=== PATIENT | female | born 1960 | race African-American/Black ===

== ENCOUNTER 2016-09-19 05:26 | Observation (INO) | payer OTHER ==
[~2016-09-19] VITALS: Ht 162.6 cm; Wt 100.0 kg
[2016-09-19] VITALS (8 sets, daily range): BP systolic 95–121; BP diastolic 66–84; PULSE 66–74; RESP 14–18; TEMP 95.6–98; O2SAT 92–98
[~2016-09-19 05:26] MED LIST: FURO20 PO; MAXZ25 PO; METO50TA PO; MULT1PAK; POTA1TAB4 PO; RIVA20 PO; ROSU40 PO
[2016-09-19] MEDS ORDERED: MAXZ PO (06:21)
[2016-09-19] MEDS ORDERED: ROSU40 PO (06:21)
[2016-09-19] MEDS ORDERED: K-TA10TA PO (06:21)
[2016-09-19] MEDS ORDERED: FURO20TA PO (06:21)
[2016-09-19] MEDS ORDERED: XARE20TA PO (06:21)
[2016-09-19] MEDS ORDERED: METO25TA3 PO (06:21)
[2016-09-19] MEDS ORDERED: PRED10 PO (06:24)
[2016-09-19] MEDS ORDERED: METH2.5T PO (06:24)
[2016-09-19] MEDS ORDERED: SODIUM CHLORIDE 0.9% FLUSH 10 ML FLUSH IV FLUSH PRN (07:00)
[2016-09-19 07:24] LABS: AUTOMATED NEUTROPHIL # 6.8 TH/MM3 (1.8-7.7); BASOPHIL # 0.2 TH/MM3 (0-0.2); BASOPHIL % 2.5 % (0.0-2.0); EOSINOPHIL # 0.1 TH/MM3 (0-0.4); EOSINOPHIL % 0.8 % (0.0-4.0); HEMATOCRIT 46.2 % (35.0-46.0); HEMO FLAGS DIFF FINAL; LYMPH % 18.7 % (9.0-44.0); LYMPHOCYTE # 1.8 TH/MM3 (1.0-4.8); MEAN CELL VOLUME 92.9 FL (80.0-100.0); MEAN CORPUSCULAR HEMOGLOBIN 29.1 PG (27.0-34.0); MEAN CORPUSCULAR HGB CONC 31.3 % (32.0-36.0); MONO % 6.7 % (0.0-8.0); NEUT % 71.3 % (16.0-70.0); PLATELET COUNT 299 TH/MM3 (150-450); RED BLOOD COUNT 4.97 MIL/MM3 (4.00-5.30); RED CELL DISTRIBUTION WIDTH 14.7 % (11.6-17.2); WHITE BLOOD COUNT 9.4 TH/MM3 (4.0-11.0)
[2016-09-19] MEDS ORDERED: MORPHINE SULFATE 4 MG/ML INJ IV PUSH ONE (07:45)
[2016-09-19] MEDS ORDERED: SODIUM CHLOR 0.9% 1000 ML INJ 1,000 ML IV SCH (07:45)
[2016-09-19] MEDS ORDERED: ONDANSETRON HCL 4 MG/2 ML VIAL IV ONE (07:45)
[2016-09-19 07:58] LABS: CHLORIDE 99 MEQ/L (98-107); POTASSIUM 3.2 MEQ/L (3.5-5.1); SODIUM (NA) 138 MEQ/L (136-145)
[2016-09-19 08:03] LABS: ANION GAP 11 MEQ/L (5-15); BICARBONATE 28.5 MEQ/L (21.0-32.0); BLOOD UREA NITROGEN 13 MG/DL (7-18)
[2016-09-19 08:06] LABS: ALT (GPT) 423 U/L (10-53); AST (GOT) 585 U/L (15-37); GLOMERULAR FILTRATION RATE 86 ML/MIN (>89)
[2016-09-19 08:08] LABS: TOTAL BILIRUBIN ADULT 1.8 MG/DL (0.2-1.0)
[2016-09-19 08:09] LABS: ALKALINE PHOSPHATASE 220 U/L (45-117)
--- NOTE | 2016-09-19 08:12 | RADHPO ---
EXAM DATE/TIME: 09/19/2016 07:43 [place] COMPARISON: No previous studies available for comparison. INDICATIONS : Gallstones. MEDICAL HISTORY : Myocardial infarction. Congestive heart failure. Left lazy eye. Optic neuritis. Syncope. Cardiomyop athy. Afib. Hyperlipidemia. Chest pain. HTN. Asthma. Anemia. Anticoagulant therapy, Xarelto. SURGICAL HISTORY : Hysterectomy. AICD implanted. Cardiac ablation x2. Cardiac cath. Cardioverted x3. Afib ablation. Left hand cyst removal. ENCOUNTER: Initial ACUITY: 2 days PAIN SCORE: 10/10 LOCATION: Right upper quadrant MEASUREMENTS: LIVER: 15.6 cm length COMMON DUCT: 6 mm RIGHT KIDNEY: 10.7 x 4.3 x 4.6 cm FINDINGS: LIVER: Severe increased echotexture without focal lesion or ductal dilatation. COMMON DUCT: No intraluminal mass or stone visualized. GALLBLADDER: Multiple echogenic foci are visualized in the gallbladder neck and demonstrate a mild degree of shado wing. These are not mobile with decubitus positioning. Mild gallbladder wall thickening is present. S onographer reports a positive sonographic Freitas sign. PANCREAS: The visualized portions are within normal limits. RIGHT KIDNEY: No evidence of hydronephrosis, stone, or mass. CONCLUSION: 1. There are stones in the gallbladder neck that are not mobile with decubitus positioning. Kristie barker, wedding makeup artist reports a positive sonographic Freitas's. Findings are suspicious for acute cholecyst itis. 2. Severe hepatic steatosis. Jabier Najera MD on September 19, 2016 at 8:08 Board Certified Radiologist. This report was verified electronically.
[2016-09-19] MEDS ORDERED: PIPERACIL-TAZO 3.375 GM PREMIX 50 ML IV ONE (09:00)
--- NOTE | 2016-09-19 11:05 | PD ---
HPI Chief Complaint: Abdominal Pain Time Seen by Provider: 06:46 Travel History International Travel<30 days: No Contact w/Intl Traveler<30days: No Traveled to known affect area: No History of Present Illness HPI The 55 year-old woman, history of sarcoidosis, on prednisone and methotrexate, as well as history of A. fib, on Xarelto, and previous V. tach with an AICD placed related to hypertrophic cardiomyopathy or cardiac sarcoid, presents to the emergency department with abdominal pain. She states during workup for sarcoid felt she had gallstones. She's never had abdominal pain before. She did get abdominal pain are in her to see a doctor before. She never trouble her gallbladder. She has only had abdominal surgery for hysterectomy. She has been feeling well until last night after dinner she started getting severe right upper quadrant epigastric abdominal pain that radiated through to her back. Symptoms were persistent through the night, associated with some nausea. Was worse this morning she began vomiting so she came to the emergency department. History Past Medical History Narrative Medical Sarcoidosis Reported hypertrophic cardiomyopathy, as well as cardiac sarcoid, she's had V. tach in the past, now has an AICD Reported A. fib, on Xarelto Tetanus Vaccination: Unknown Influenza Vaccination: No Menopausal: Yes : 3 Para: 3 Social History Alcohol Use: No Tobacco Use: No Allergies-Medications (Allergen,Severity, Reaction): Coded Allergies: Dairy (Verified Allergy, Severe, Rash, 09/19/16) Oxycodone (Unverified Allergy, Severe, Nausea/Vomiting, 09/19/16) Shellfish (Verified Allergy, Severe, Rash, 09/19/16) Egg Allergy (Verified Allergy, Intermediate, Rash, 09/19/16) Reported Meds & Prescriptions Reported Meds & Active Scripts Active Reported Prednisone 10 Mg Tab 9 Mg PO DAILY Methotrexate 2.5 Mg Tab 2.5 Mg PO FRIDAY Metoprolol Tartrate 25 Mg Tab 25 Mg PO BID Furosemide 20 Mg Tab 20 Mg PO DAILY K-Tab (Potassium Chloride) 10 Meq Tab 10 Meq PO DAILY Crestor (Rosuvastatin Calcium) 40 Mg Tab 40 Mg PO DAILY Xarelto (Rivaroxaban) 20 Mg Tab 20 Mg PO DAILY Maxzide (Triamterene/HCTZ) 75-50 Mg Tab 1 Tab PO DAILY Review of Systems Except as stated in HPI: all other systems reviewed are Neg Physical Exam Narrative GENERAL: Well-appearing 55 year-old woman, no acute distress. SKIN: Focused skin assessment warm/dry. NECK: Trachea midline. No JVD. CARDIOVASCULAR: Regular rate and rhythm. No murmur appreciated. RESPIRATORY: No accessory muscle use. Clear to auscultation. Breath sounds equal bilaterally. GASTROINTESTINAL: Abdomen flat and soft. She has moderate right upper quadrant tenderness to palpation. Positive Freitas sign. No rebound or guarding. MUSCULOSKELETAL: No obvious deformities. No edema. Data Data Last Documented VS Vital Signs Date Time Temp Pulse Resp B/P Pulse Ox O2 Delivery O2 Flow Rate FiO2 09/19/16 08:26 69 18 97/66 98 Room Air 09/19/16 05:33 98.0 Orders Complete Blood Count With Diff (09/19/16 07:00) Comprehensive Metabolic Panel (09/19/16 07:00) Lipase (09/19/16 07:00) Urinalysis - C+S If Indicated (09/19/16 07:00) Iv Access Insert/Monitor (09/19/16 07:00) Ecg Monitoring (09/19/16 07:00) Oximetry (09/19/16 07:00) Sodium Chloride 0.9% Flush (Ns Flush) (09/19/16 07:00) Ed Poc Ultrasound (09/19/16 07:00) Us Abdomen Gallbladder (09/19/16 ) Morphine Inj (Morphine Inj) (09/19/16 07:45) Ondansetron Inj (Zofran Inj) (09/19/16 07:45) Sodium Chlor 0.9% 1000 Ml Inj (Ns 1000 M (09/19/16 07:45) Piperacil-Tazo 3.375 Gm Premix (Zosyn 3. (09/19/16 09:00) Admit Order (Ed Use Only) (09/19/16 ) Labs Laboratory Tests Test 09/19/16 09/19/16 07:12 07:40 White Blood Count 9.4 TH/MM3 Red Blood Count 4.97 MIL/MM3 Hemoglobin 14.5 GM/DL Hematocrit 46.2 % Mean Corpuscular Volume 92.9 FL Mean Corpuscular Hemoglobin 29.1 PG Mean Corpuscular Hemoglobin 31.3 % Concent Red Cell Distribution Width 14.7 % Platelet Count 299 TH/MM3 Mean Platelet Volume 9.3 FL Neutrophils (%) (Auto) 71.3 % Lymphocytes (%) (Auto) 18.7 % Monocytes (%) (Auto) 6.7 % Eosinophils (%) (Auto) 0.8 % Basophils (%) (Auto) 2.5 % Neutrophils # (Auto) 6.8 TH/MM3 Lymphocytes # (Auto) 1.8 TH/MM3 Monocytes # (Auto) 0.6 TH/MM3 Eosinophils # (Auto) 0.1 TH/MM3 Basophils # (Auto) 0.2 TH/MM3 CBC Comment DIFF FINAL Differential Comment Sodium Level 138 MEQ/L Potassium Level 3.2 MEQ/L Chloride Level 99 MEQ/L Carbon Dioxide Level 28.5 MEQ/L Anion Gap 11 MEQ/L Blood Urea Nitrogen 13 MG/DL Creatinine 0.84 MG/DL Estimat Glomerular Filtration 86 ML/MIN Rate Random Glucose 132 MG/DL Calcium Level 9.2 MG/DL Total Bilirubin 1.8 MG/DL Aspartate Amino Transf 585 U/L (AST/SGOT) Alanine Aminotransferase 423 U/L (ALT/SGPT) Alkaline Phosphatase 220 U/L Total Protein 8.1 GM/DL Albumin 4.0 GM/DL Lipase 340 U/L [facility] Medical Decision Making Medical Screen Exam Complete: Yes Emergency Medical Condition: Yes Interpretation(s) LABS: CBC is unremarkable. CMP remarkable for elevated total bili, elevated AST ALT and alkaline phosphatase Lipase normal Differential Diagnosis Acute cholecystitis, pancreatitis, choledocholithiasis, other Narrative Course Medical decision making 54 year-old woman presents of right upper quadrant abdominal pain, right upper quadrant tenderness, specifically cholecystitis. Bedside ultrasound shows gallstone that appears impacted in the gallbladder neck. I don't see any definite gallbladder wall thickening or pericholecystic fluid. She's focally tender over the gallbladder. Labs show elevation in her liver enzymes. I spoke with Dr. myers, he will admit the patient. We'll consult with Dr. viadl. She'll need to be off for Xarelto. We'll give her a dose of Zosyn. Diagnosis Primary Impression: Acute cholecystitis Admitting Information Admitting Physician Requests: Admit David Moses MD Sep 19, 2016 11:05
[2016-09-19] MEDS ORDERED: HYDROmorphone HCL PF 2 MG/ML VIAL IV PUSH PRN (13:30)
[2016-09-19] MEDS ORDERED: D5-1/2 NS + KCL 20 MEQ INJ 1,000 ML IV SCH (13:30)
[2016-09-19] MEDS: DEXAMETHASONE SOD PHOS 4 MG/ML VIAL IV PUSH SCH (17:59)
[2016-09-19] MEDS: PIPERACIL-TAZO 3.375 GM PREMIX 50 ML IV SCH ×2 (17:59→22:54)
[2016-09-19] MEDS: ONDANSETRON HCL 4 MG/2 ML VIAL IV PUSH PRN (18:00)
[2016-09-19] MEDS: HYDROmorphone HCL PF 1 MG/ML VIAL IV PUSH PRN (18:00)
[2016-09-19] MEDS ORDERED: POTASSIUM CHLORIDE 20 MEQ CONTROLLED RELEASE TAB PO ONE (18:15)
--- NOTE | 2016-09-19 19:35 | PD.CONS ---
History of Present Illness Service Medicine Consult Requested By Dr. Good Reason for Consult Assist in medical management Primary Care Physician Brian Marinelli MD Diagnoses: (1) Acute cholecystitis (2) Hypertrophic cardiomyopathy (3) Hyperlipidemia (4) Sarcoidosis (5) KOREY (obstructive sleep apnea) History of Present Illness 55 year old female presents to Ed with one night of intense abdominal pain not relieved with multiple OTC medications. She states she has had indigestion and abdominal bloating for the last year that she has attributed to one of her medications. This discomfort has been happening more frequently over the last several weeks. Friday she went out for dinner and had some abdominal pain that evening that improved. Last night after dinner she developed abdominal pain that continued to get worse during the course of the evening, she tried teas, tums, gas-x pepto bismol.She finally came to the ED where she was found to have gallstones. Dr Good will be taking her to surgery tommorrow am. Per the ER physician Dr Good has spoken to her high pressure operator and he has stopped her xaralto for 24 hours. Review of Systems Constitutional: DENIES: Fever, Chills, Change in appetite Endocrine: DENIES: Heat/cold intolerance Eyes: DENIES: Blurred vision, Eye pain Cardiovascular: DENIES: Chest pain, Palpitations, Syncope, Dyspnea on Exertion , PND, Lower Extremity Edema, Orthopnea, Claudication Gastrointestinal: COMPLAINS OF: Black stools, Bloody stools, Constipation, Diarrhea, Nausea, Vomiting, Difficulty Swallowing Except as stated in HPI: all other systems reviewed are Neg Past Family Social History Allergies: Coded Allergies: Dairy (Verified Allergy, Severe, Rash, 09/19/16) Oxycodone (Unverified Allergy, Severe, Nausea/Vomiting, 09/19/16) Shellfish (Verified Allergy, Severe, Rash, 09/19/16) Egg Allergy (Verified Allergy, Intermediate, Rash, 09/19/16) Past Medical History Hypertrophic cardiomyopathy [place] Atrial fibrillation s/p ablation PSVT Sarcoidosis Optic Neuritis KOREY Hyperlipidemia Past Surgical History Implantable cardioverter-defibrillator CISCO rt paroidectomy Reported Medications kcl 10 meq dailycrestor 20 mg daily folic acid 1 mg daily furosemide 40 qod losartan 25 mg daily methotrexate 2.5 mg 6tabs on friday metoprolol 25 mg bid prednisone 9 mg daily triam/hctz 37.5/25 qod xaralto 20 mg daily Family History non contributory Social History , 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 Physical Exam Vital Signs Vital Signs Date Time Temp Pulse Resp B/P Pulse Ox O2 Delivery O2 Flow Rate FiO2 09/19/16 16:00 96.3 70 18 118/79 98 09/19/16 14:45 95.6 67 17 95/69 96 09/19/16 12:30 66 14 114/67 96 Room Air 09/19/16 11:13 70 18 108/69 97 Room Air 09/19/16 08:26 69 18 97/66 98 Room Air 09/19/16 07:22 97 Room Air 09/19/16 05:33 98.0 72 18 121/84 98 Physical Exam GENERAL: This is a well-nourished, well-developed patient, in no apparent distress. SKIN: No rashes, ecchymoses or lesions. Cool and dry. HEAD: Atraumatic. Normocephalic. No temporal or scalp tenderness. EYES: Pupils equal round and reactive. Extraocular motions intact. No scleral icterus. No injection or drainage. ENT: Throat without erythema, moist oral mucosa. NECK: Trachea midline. No JVD or lymphadenopathy. Supple, nontender, no meningeal signs. CARDIOVASCULAR: Regular rate and rhythm without murmurs, gallops, or rubs. RESPIRATORY: Clear to auscultation. Breath sounds equal bilaterally. No wheezes , rales, or rhonchi. GASTROINTESTINAL: Abdomen soft. diminished bowel sounds. midepigastric ruq tenderness to palpation, nondistended. MUSCULOSKELETAL: Extremities without clubbing, cyanosis, or edema. No calf tenderness. Negative Homans sign bilaterally. NEUROLOGICAL: Awake and alert. Cranial nerves II through XII intact. Motor and sensory grossly within normal limits. Five out of 5 muscle strength in all muscle groups. Normal speech. Laboratory Laboratory Tests Test 09/19/16 09/19/16 07:12 07:40 White Blood Count 9.4 Red Blood Count 4.97 Hemoglobin 14.5 Hematocrit 46.2 Mean Corpuscular Volume 92.9 Mean Corpuscular Hemoglobin 29.1 Mean Corpuscular Hemoglobin 31.3 Concent Red Cell Distribution Width 14.7 Platelet Count 299 Mean Platelet Volume 9.3 Neutrophils (%) (Auto) 71.3 Lymphocytes (%) (Auto) 18.7 Monocytes (%) (Auto) 6.7 Eosinophils (%) (Auto) 0.8 Basophils (%) (Auto) 2.5 Neutrophils # (Auto) 6.8 Lymphocytes # (Auto) 1.8 Monocytes # (Auto) 0.6 Eosinophils # (Auto) 0.1 Basophils # (Auto) 0.2 CBC Comment DIFF FINAL Differential Comment Sodium Level 138 Potassium Level 3.2 Chloride Level 99 Carbon Dioxide Level 28.5 Anion Gap 11 Blood Urea Nitrogen 13 Creatinine 0.84 Estimat Glomerular Filtration 86 Rate Random Glucose 132 Calcium Level 9.2 Total Bilirubin 1.8 Aspartate Amino Transf 585 (AST/SGOT) Alanine Aminotransferase 423 (ALT/SGPT) Alkaline Phosphatase 220 Total Protein 8.1 Albumin 4.0 Lipase 340 Result Diagram: 09/19/16 0712 09/19/16 0740 Imaging Last Impressions Gall Bladder Ultrasound 09/19/16 0000 Signed Impressions: Service Date/Time: , September 19, 2016 07:43 - CONCLUSION: 1. There are stones in the gallbladder neck that are not mobile with decubitus positioning. Additionally, pelt dropper reports a positive sonographic Freitas's. Findings are suspicious for acute cholecystitis. 2. Severe hepatic steatosis. Jabier Najera MD Course Patient has been admitted for acute cholecystitis. Xaralto has been stopped , She has been placed on antibiotcs and stress dose steroids, On dilaudid for pain control. Assessment and Plan Problem List: (1) Acute cholecystitis Status: Acute Plan: on antibiotics and pain medications until anticipated surgery tomnorrow (2) Sarcoidosis Status: Chronic Plan: on methrotrexate and prednisone since last fall, on stress dose steroids ss insulin prn (3) Hypertrophic cardiomyopathy Status: Chronic Plan: on xaralto , per ER Physician Dr Good has already discussed Stopping the Xaralto with Li Chamorro MD Sep 19, 2016 19:35
[2016-09-19] MEDS ORDERED: DEXTROSE 50% IN WATER 50 ML VIAL(D50) IV PRN (19:45)
[2016-09-19] MEDS ORDERED: GLUCAGON 1 MG/ML VIAL OTHER PRN (19:45)
[2016-09-19] MEDS ORDERED: INSULIN ASPART SUPPLEMENTAL SCALE SQ SCH (21:00)
[2016-09-20 00:11] VITALS: BP 110/81; PULSE 72; RESP 14; TEMP 96.1; O2SAT 96
[2016-09-20] MEDS: DEXAMETHASONE SOD PHOS 4 MG/ML VIAL IV PUSH SCH ×3 (00:57→15:53)
[2016-09-20] MEDS: PIPERACIL-TAZO 3.375 GM PREMIX 50 ML IV SCH ×2 (03:19→09:08)
[2016-09-20 04:11] VITALS: BP 106/84; PULSE 71; RESP 14; TEMP 96.3; O2SAT 97
[2016-09-20 06:23] LABS: AUTOMATED NEUTROPHIL # 9.9 TH/MM3 (1.8-7.7); BASOPHIL % 0.3 % (0.0-2.0); EOSINOPHIL % 0.1 % (0.0-4.0); HEMATOCRIT 41.6 % (35.0-46.0); HEMO FLAGS DIFF FINAL; LYMPH % 8.7 % (9.0-44.0); LYMPHOCYTE # 0.9 TH/MM3 (1.0-4.8); MEAN CELL VOLUME 93.5 FL (80.0-100.0); MEAN CORPUSCULAR HEMOGLOBIN 30.6 PG (27.0-34.0); MEAN CORPUSCULAR HGB CONC 32.7 % (32.0-36.0); MONO % 0.6 % (0.0-8.0); NEUT % 90.3 % (16.0-70.0); PLATELET COUNT 315 TH/MM3 (150-450); RED BLOOD COUNT 4.45 MIL/MM3 (4.00-5.30); RED CELL DISTRIBUTION WIDTH 13.9 % (11.6-17.2); WHITE BLOOD COUNT 10.9 TH/MM3 (4.0-11.0)
[2016-09-20 06:25] LABS: POTASSIUM 3.4 MEQ/L (3.5-5.1)
[2016-09-20 06:30] LABS: BICARBONATE 30.1 MEQ/L (21.0-32.0)
[2016-09-20 06:35] LABS: INDIRECT BILIRUBIN 0.8 MG/DL (0.0-0.8); TOTAL BILIRUBIN ADULT 1.1 MG/DL (0.2-1.0)
[2016-09-20] MEDS: ONDANSETRON HCL 4 MG/2 ML VIAL IV PUSH PRN ×2 (07:38→14:19)
[2016-09-20 08:00] VITALS: BP 118/85; PULSE 73; RESP 18; TEMP 97.6; O2SAT 98
[2016-09-20 09:17] VITALS: BP 118/85; PULSE 73; RESP 18; TEMP 97.6; O2SAT 98
--- NOTE | 2016-09-20 09:32 | MH ---
cc: IDA RIOS DATE OF ADMISSION: 09/19/2016 ADMITTING DIAGNOSIS Acute cholecystitis. BRIEF HISTORY The patient is a 55-year-old lady who presented to the emergency department in [place] with a less than 24-hour history of significant upper abdominal pain. The pain began several hours after eating a meal in the evening. She had persistent and increasing abdominal pain throughout the night with multiple episodes of nausea and emesis as well. She came to the emergency department where she was evaluated and found to have elevated liver function tests and an ultrasound consistent with acute cholecystitis. She was admitted for surgical intervention which was delayed due to the patient having taken Xarelto the day before. PAST MEDICAL HISTORY 1. Hypertrophic cardiomyopathy. 2. Previous myocardial infarction. 3. Atrial fibrillation status post ablation. 4. Sarcoidosis. 5. Optic neuritis. 6. Hyperlipidemia. 7. Previous placement of an AICD. 8. Total abdominal hysterectomy. 9. Right parotidectomy. MEDICATIONS Current medications include: 1. Furosemide 40 mg every other day. 2. Losartan 25 mg a day. 3. Methotrexate 2.5 mg, six tablets on Friday. 4. Metoprolol 25 mg b.i.d. 5. Prednisone 9 mg daily. 6. Triamterene/hydrochlorothiazide 37.5/25 every other day. 7. Xarelto 20 mg daily; last dose 18 Sep 2016. FAMILY HISTORY, SOCIAL HISTORY AND REVIEW OF SYSTEMS Noncontributory. PHYSICAL EXAMINATION VITAL SIGNS: Blood pressure 121/84, heart rate 72. GENERAL: The patient is an overall healthy-appearing lady in minimal distress. HEENT: Unremarkable. No lesions, inflammation or scleral icterus. NECK: Supple. No lymphadenopathy or thyromegaly. CHEST: Clear to percussion and auscultation. HEART: No murmurs or gallops. ABDOMEN: The abdomen is minimally tender in the right upper quadrant with no guarding or rebound. EXTREMITIES: Grossly intact. NEUROLOGIC: Grossly intact. LABORATORY White blood count is normal. Liver functions were significantly elevated at the time of admission with AST 585, ALT 423, bilirubin 1.8, alkaline phosphatase 220. IMAGING Ultrasound showed thickened gallbladder wall with possible pericholecystic fluid consistent with possible acute cholecystitis. IMPRESSION Acute cholecystitis. PLAN Laparoscopic cholecystectomy the day after admission. The patient will be placed on intravenous antibiotics and a clear liquid diet until surgery. I have explained the procedure to her including the risks of bleeding, infection, anesthesia, the possibility of visceral injury, common bile duct injury, open procedure and the possible necessity for postoperative ERCP. She understands and is agreeable to the procedure. MD AB Bennett/MICKEY /8:49 AM /9:25 AM
[2016-09-20] MEDS ORDERED: MIDAZOLAM HCL 2 MG/2 ML VIAL ONE (09:43)
[2016-09-20] MEDS ORDERED: FAMOTIDINE 20 MG/2 ML VIAL ONE (09:43)
[2016-09-20] MEDS ORDERED: fentaNYL CITRATE 250 MCG/5 ML AMP ONE (09:54)
[2016-09-20] MEDS ORDERED: VASOPRESSIN INJ 20 UNITS/ML VIAL ONE (09:55)
[2016-09-20] MEDS ORDERED: LIDOCAINE 1%/EPINEPHrine 1:100,000 SOLN 30 ML VIAL ONE (10:03)
[2016-09-20] MEDS ORDERED: BUPIVACAINE HCL PF 0.5% 30 ML VIAL ONE (10:03)
[2016-09-20 11:45] VITALS: PULSE 92
[2016-09-20] MEDS ORDERED: PROPOFOL 200 MG/20 ML AMP IV ONE (12:43)
[2016-09-20] MEDS ORDERED: ONDANSETRON HCL 4 MG/2 ML VIAL IV PUSH ONE (12:43)
[2016-09-20] MEDS: HYDROmorphone HCL PF 1 MG/ML VIAL IV PUSH PRN (14:24)
[2016-09-20] MEDS ORDERED: oxyCODONE/ACETAMINOPHEN 5 MG/325 MG TAB PO PRN ×2 (15:00)
[2016-09-20 15:56] VITALS: BP 103/71; PULSE 74; RESP 16; TEMP 96.2; O2SAT 93
--- NOTE | 2016-09-20 17:24 | HHI.PR ---
Subjective Remarks groggy after surgery, eating jello Objective Vitals Vital Signs Date Time Temp Pulse Resp B/P Pulse Ox O2 Delivery O2 Flow Rate FiO2 09/20/16 15:56 96.2 74 16 103/71 93 09/20/16 12:45 79 14 125/75 97 Room Air 09/20/16 12:28 79 14 125/76 98 Nasal Cannula 2 09/20/16 12:00 79 12 144/87 96 Nasal Cannula 2 09/20/16 11:45 97.6 92 12 157/89 95 Nasal Cannula 2 09/20/16 11:45 92 09/20/16 09:17 97.6 73 18 118/85 98 09/20/16 08:00 97.6 73 18 118/85 98 09/20/16 04:11 96.3 71 14 106/84 97 09/20/16 01:00 97.6 83 14 134/76 99 Room Air 09/20/16 00:11 96.1 72 14 110/81 96 09/19/16 20:11 96.5 74 16 101/78 92 09/19/16 09/19/16 09/20/16 15:00 23:00 07:00 Intake Total 1240 ml Balance 1240 ml Intake Oral 240 ml IV Total 1000 ml # Voids 2 3 # Bowel Movements 0 Result Diagram: 09/20/16 0520 09/20/16 0520 Imaging Last Impressions Gall Bladder Ultrasound 09/19/16 0000 Signed Impressions: Service Date/Time: September 07:43 - CONCLUSION: 1. There are stones in the gallbladder neck that are not mobile with decubitus positioning. Additionally, hvac manager reports a positive sonographic Freitas's. Findings are suspicious for acute cholecystitis. 2. Severe hepatic steatosis. Jabier Najera MD Objective Remarks alert nad cta rrr decreased bsm steri strips over incisions no edema A/P Problem List: (1) Acute cholecystitis Status: Resolved Plan: s/p cholecystectomy today by dr myers (2) Hypertrophic cardiomyopathy Status: Chronic Plan: has AICD , afib s/p ablation on xaralto held for surgery nurse spoke to surgeon diabetes solutions specialist ok to restart on friday I spoke to Dr Le who stated the same will discharge with instruction to start then Li Fisher MD Sep 20, 2016 17:24
[2016-09-20] MEDS ORDERED: HYDR-3533 PO (18:54)
[2016-09-20] MEDS ORDERED: XARE20TA PO ×2 (19:04→19:07)
--- NOTE | 2016-10-23 13:41 | MP ---
cc: BLANCAFORRESTY DATE OF SURGERY 09/20/2016 PREOPERATIVE DIAGNOSIS Acute cholecystitis. POSTOPERATIVE DIAGNOSIS Acute cholecystitis. PROCEDURE Laparoscopic cholecystectomy. SURGEON MD Blanca ANESTHESIA General endotracheal. OPERATIVE FINDINGS The patient was found to have a thickened, distended gallbladder. There were minimal adhesions to it, although it was moderately injected indicating acute inflammation. The cystic duct and common bile duct were seen to be of normal caliber. No other abnormalities were noted. OPERATIVE PROCEDURE The patient was brought to the operating room and, after satisfactory general endotracheal anesthesia was obtained, the abdomen was prepped and draped in the usual sterile fashion. 0.5% Marcaine with epinephrine was used to infiltrate the skin for local anesthesia. A small incision was made above the umbilicus through which a 5-mm trocar was inserted into the peritoneal cavity under direct visualization. The abdomen was distended to 15 mmHg using carbon dioxide after which the camera was reinserted and visceral injury inspected for, with none being identified. The patient was noted to have a few adhesions in the lower abdomen from previous surgery which were not involved. Under direct visualization a 5-port and a 12-port were placed in the upper abdomen. The gallbladder was seen as noted above. It was grasped and retracted superiorly over the right lobe of the liver after which Mary Ann's pouch was grasped, retracted inferiorly and laterally, placing tension on the hepatoduodenal ligament. There was a moderate amount of scar tissue in the area of dissection but the cystic duct and cystic arteries were both dissected free bluntly with minimal to moderate difficulty. Once the critical view was obtained with assurity, the cystic duct was clipped and then divided near the gallbladder with harmonic scalpel. The artery was divided with harmonic scalpel near its junction with the gallbladder. The gallbladder was then dissected free from the liver bed using the harmonic scalpel. It was then placed within an EndoCatch bag and brought through the lower midline incision was emptied of its bile and withdrawn without problem. The trocar was reinserted and the liver bed inspected and found to be hemostatic. The cystic duct and cystic artery stumps were both inspected and found to be intact with no leakage of bile or blood. The carbon dioxide was then vented as completely as possible to the atmosphere after which the ports were removed and the 12-mm fascial defect closed with interrupted 0 Vicryl suture and the skin closed with interrupted 4-0 PDS subcuticular stitches. Steri-Strips and a sterile dressing were applied. The patient was then awakened and taken from the operating room, in satisfactory condition, having tolerated the procedure without problem. Estimated blood loss was less than 10 mL. The instrument, sponge and needle counts were reported as being correct x 2 at the end of the procedure. MD AB Bennett/MADISYN /1:02 PM /1:37 PM
== END 2016-09-20 19:15 | disposition home or self-care (01) ==
LOC: PHED 05:26 → PHEDA 10:58 → INTOOBSV 10:58 → PH3B 14:10
PROVIDERS: ADMIT Surgery; ATTEND Surgery
DX: K80.12 Calculus of gallbladder with acute and chronic cholecystitis without obstruction (principal); I42.2 Other hypertrophic cardiomyopathy; I48.91 Unspecified atrial fibrillation; D86.9 Sarcoidosis, unspecified; G47.33 Obstructive sleep apnea (adult) (pediatric); E78.5 Hyperlipidemia, unspecified; H46.9 Unspecified optic neuritis; I25.2 Old myocardial infarction; Z79.01 Long term (current) use of anticoagulants; Z95.810 Presence of automatic (implantable) cardiac defibrillator; Z90.710 Acquired absence of both cervix and uterus; Z01.818 Encounter for other preprocedural examination
CPT/HCPCS: 00790; 47562; 76705; 80048; 80053; 80076; 82948; 83690; 85025; 88304; 96361; 96374; 96375; 99285; G0378; J1100; J1170; J2250; J2270; J2405; J2543; J3010; J3480; J7030

== ENCOUNTER 2017-06-25 05:44 | Inpatient (IN) | payer OTHER ==
[~2017-06-25] VITALS: Ht 160 cm; Wt 96.1 kg
[~2017-06-25 05:44] MED LIST changes: -FURO20 PO; +FURO20TA PO; +HYDR-3533 PO; +K-TA10TA PO; +MAXZ PO; -MAXZ25 PO; +METH2.5T PO; +METO25TA3 PO; -METO50TA PO; -MULT1PAK; -POTA1TAB4 PO; +PRED10 PO; -RIVA20 PO; +XARE20TA PO
[2017-06-25] MEDS ORDERED: LACTATED RINGER'S 1000 ML IV PRN (06:15)
[2017-06-25] MEDS ORDERED: POVIDONE IODINE 5% (ANTISEPSIS KIT) 4 APPLICATIONS EACH NARE PRN (06:15)
[2017-06-25] MEDS ORDERED: SODIUM CHLORID 0.9% 500 ML IV PRN (06:15)
[2017-06-25] MEDS ORDERED: ceFAZolin 2 GM PREMIX 50 ML IV SCH (06:15)
[2017-06-25] MEDS ORDERED: METOPROLOL TARTRATE 25 MG TAB PO PRN (06:15)
[2017-06-25] MEDS ORDERED: SCOPOLAMINE 1.5 MG PATCH T-DERMAL SCH (06:15)
[2017-06-25] MEDS ORDERED: APREPITANT 40 MG CAP PO SCH (06:15)
[2017-06-25] MEDS ORDERED: ONDANSETRON HCL 4 MG/2 ML VIAL IV PUSH SCH (06:15)
[2017-06-25] MEDS ORDERED: CHLORHEXIDINE GLUCONATE 2 % 1 PACK (2 CLOTHS) TOPICAL PRN (06:15)
[2017-06-25] MEDS: ACETAMINOPHEN 1000 MG/100 ML 100 ML IV SCH ×3 (06:39→18:03)
[2017-06-25] MEDS ORDERED: BUPIVACAINE/EPINEPHRINE 0.25% 50 ML VIAL ONE (06:55)
[2017-06-25] MEDS ORDERED: METHYLENE BLUE 10 MG/ML VIAL OTHER ONE (08:50)
[2017-06-25] MEDS ORDERED: ONDANSETRON HCL 4 MG/2 ML VIAL IV PUSH PRN (09:15)
[2017-06-25] MEDS ORDERED: NALOXONE HCL 0.4 MG/ML AMP IV PUSH PRN (09:15)
[2017-06-25] MEDS ORDERED: SODIUM CHLORIDE 0.9% FLUSH 10 ML FLUSH IV FLUSH PRN (09:15)
[2017-06-25] MEDS ORDERED: diphenhydrAMINE HCL 50 MG/ML VIAL IV PUSH PRN (09:15)
[2017-06-25] MEDS ORDERED: ACETAMINOPHEN 325MG/HYDROcodone 7.5MG/15ML UDC PO PRN (09:15)
[2017-06-25] MEDS ORDERED: diphenhydrAMINE HCL ELIXIR 12.5 MG/5 ML CUP PO PRN (09:15)
[2017-06-25] MEDS ORDERED: Post-op Orders (for Pharmacy) OTHER ONE (09:15)
[2017-06-25] MEDS ORDERED: DO NOT ADM ANY ANTICOAGULANT DRUGS PRN (09:23)
[2017-06-25] MEDS ORDERED: MIDAZOLAM HCL 2 MG/2 ML VIAL ONE (09:31)
[2017-06-25] MEDS ORDERED: MORPHINE SULFATE 30 MG/30 ML PCA IV SCH (09:45)
[2017-06-25] MEDS: D5-1/2 NS + KCL 20 MEQ INJ 1,000 ML IV SCH ×2 (09:50→18:04)
--- NOTE | 2017-06-25 10:01 | MP ---
cc: Mikey Sargent MD DATE OF OPERATION: 06/25/2017 PREOPERATIVE DIAGNOSIS: Severe obesity with a BMI of 36 complicated by essential hypertension, hypercholesterolemia. POSTOPERATIVE DIAGNOSIS: Severe obesity with a BMI of 36 complicated by essential hypertension, hypercholesterolemia. PROCEDURE: Laparoscopic vertical sleeve gastrectomy over a 36 ViSiGi bougie. SURGEON: Mikey Sargent MD ANESTHESIA: General endotracheal anesthesia. ESTIMATED BLOOD LOSS: Scant. FINDINGS: Fatty liver. SPECIMENS: None. COMPLICATIONS: None. PROCEDURE IN DETAIL The patient was brought to the operating room and placed on the operating table in supine position, bilateral sequential inflation device placed on lower extremities. General anesthesia was instituted. Antibiotics was initiated. The abdomen was prepped and draped sterilely. A point 15 cm distal to the xiphoid in the midline was anesthetized with 0.25% Marcaine with epinephrine. A skin incision was made, 5-mm OptiView port placed under direct vision and pneumoperitoneum created. Under direct vision, three 5-mm left upper quadrant, a 15-mm right upper quadrant, 5-mm right upper quadrant ports placed. Prior to placement of all ports the skin and peritoneum were anesthetized with 0.25% Marcaine with epinephrine. The patient was placed in reverse Trendelenburg position left side up, the Yoon-Flex retractor was placed. The left lobe of the liver was retracted. The vasculature along the greater curvature of the stomach was using harmonic scalpel starting a distance 5-cm proximal to the pylorus and carried towards the angle of His. The angle of His was taken down bluntly. Posterior ligamentous attachments were sharply . A 36-Telugu ViSiGi bougie was placed at the start of the case, was placed on suction. Division of the stomach started 5 cm proximal to the pylorus and carried towards the angle of His to completely excise approximately 80% of the stomach. This was performed using an [place] Flex stapler at the pylorus. The first firing was with a black load, followed by a green load and four gold loads. All staple loads were reinforced with SeamGuard. A distance of 2 cm was left from the angle incisura and the staple line and a distance of 1 cm left from the GE junction and the staple line. The pylorus was then occluded, methylene blue tinged saline was instilled. There was no evidence of extravasation. The gastrocolic ligament was then sutured to the posterior leaflet of the SeamGuard using a 2-0 Vicryl suture in a running manner. Bleeding points were controlled with Evicel. The excised stomach was removed from the peritoneal cavity through the 15-mm port site in an Endopouch. The fascia at the 15-mm port site was approximated with 0 Vicryl suture. The CO2 was then released, all ports were removed, all skin incisions closed with 4-0 Monocryl. The abdominal wall was cleaned. A sterile dressing was placed. The patient was awakened and taken to the recovery room. MD JOSE Augustine/IDANIA , 09:12 AM , 09:25 AM
[2017-06-25] MEDS ORDERED: HYDROmorphone HCL PF 2 MG/ML VIAL ONE (10:05)
[2017-06-25 10:36] LABS: BICARBONATE 24.1 MEQ/L (21.0-32.0); CREATININE 0.81 MG/DL (0.50-1.00)
[2017-06-25] MEDS: METOCLOPRAMIDE HCL 10 MG/2 ML VIAL IV PUSH SCH ×3 (11:00→22:21)
[2017-06-25 12:00] VITALS: BP 108/63; PULSE 82; RESP 17; TEMP 98.4; O2SAT 94
[2017-06-25] MEDS ORDERED: NEOSTIGMINE 5 MG/5 ML SYRINGE IV PUSH ONE (12:00)
[2017-06-25] MEDS ORDERED: GLYCOPYRROLATE 1 MG/5 ML SYRINGE IV PUSH ONE (12:00)
[2017-06-25] MEDS ORDERED: ONDANSETRON HCL 4 MG/2 ML VIAL IV PUSH ONE (12:00)
[2017-06-25] MEDS ORDERED: PHENYLEPH/NS 1000 MCG/10 ML SYR IV ONE (12:00)
[2017-06-25] MEDS ORDERED: ePHEDrine/NS 25 MG/5 ML SYRINGE IV ONE (12:00)
[2017-06-25] MEDS ORDERED: LIDOCAINE HCL 1% PF 5 ML SYRINGE OTHER ONE (12:00)
[2017-06-25] MEDS ORDERED: DEXAMETHASONE SOD PHOS 4 MG/ML VIAL IV ONE (12:00)
[2017-06-25] MEDS ORDERED: PROPOFOL 200 MG/20 ML AMP IV ONE (12:00)
[2017-06-25] MEDS ORDERED: ROCURONIUM INJ 50 MG/5 ML SYRINGE IV PUSH ONE (12:00)
[2017-06-25] MEDS ORDERED: LACTATED RINGER'S 1000 ML INJ 1,000 ML IV ONE (12:00)
[2017-06-25] MEDS ORDERED: ENOXAPARIN SODIUM 40 MG/0.4 ML SYRINGE SQ SCH (13:30)
[2017-06-25] MEDS: PCA - TOTAL MG MORPHINE DELIVERED PER SHIFT SCH ×2 (14:00→22:00)
[2017-06-25 16:00] VITALS: BP 111/59; PULSE 78; RESP 17; TEMP 98.4; O2SAT 93
[2017-06-25 17:26] VITALS: O2SAT 94
[2017-06-25 20:00] VITALS: BP 125/80; PULSE 80; RESP 18; TEMP 96.1; O2SAT 95
[2017-06-25] MEDS: SODIUM CHLORIDE 0.9% FLUSH 10 ML FLUSH IV FLUSH SCH (21:00)
[2017-06-25 22:09] VITALS: O2SAT 95
[2017-06-26] VITALS (7 sets, daily range): BP systolic 98–133; BP diastolic 62–87; PULSE 66–81; RESP 18–19; TEMP 96.3–97.3; O2SAT 94–97
[2017-06-26] MEDS: ACETAMINOPHEN 1000 MG/100 ML 100 ML IV SCH ×2 (00:24→05:55)
[2017-06-26] MEDS: METOCLOPRAMIDE HCL 10 MG/2 ML VIAL IV PUSH SCH (03:06)
[2017-06-26] MEDS: D5-1/2 NS + KCL 20 MEQ INJ 1,000 ML IV SCH ×2 (03:06→08:11)
[2017-06-26] MEDS: PCA - TOTAL MG MORPHINE DELIVERED PER SHIFT SCH (05:54)
[2017-06-26 06:18] LABS: AUTOMATED NEUTROPHIL # 10.2 TH/MM3 (1.8-7.7); BASOPHIL % 0.1 % (0.0-2.0); HEMOGLOBIN 12.6 GM/DL (11.6-15.3); LYMPHOCYTE # 0.9 TH/MM3 (1.0-4.8); MEAN CELL VOLUME 90.3 FL (80.0-100.0); MEAN CORPUSCULAR HEMOGLOBIN 29.2 PG (27.0-34.0); MEAN CORPUSCULAR HGB CONC 32.4 % (32.0-36.0); MONO % 5.4 % (0.0-8.0); MONOCYTE # 0.6 TH/MM3 (0-0.9); NEUT % 86.5 % (16.0-70.0); PLATELET COUNT 291 TH/MM3 (150-450); RED BLOOD COUNT 4.33 MIL/MM3 (4.00-5.30); RED CELL DISTRIBUTION WIDTH 14.2 % (11.6-17.2); WHITE BLOOD COUNT 11.8 TH/MM3 (4.0-11.0)
[2017-06-26 07:21] LABS: BICARBONATE 25.3 MEQ/L (21.0-32.0); CALCIUM 8.8 MG/DL (8.5-10.1); CREATININE 0.82 MG/DL (0.50-1.00); MAGNESIUM 1.7 MG/DL (1.5-2.5)
[2017-06-26] MEDS: PANTOPRAZOLE SOD 40 MG DELAYED RELEASE TAB PO SCH (08:09)
[2017-06-26] MEDS: SODIUM CHLORIDE 0.9% FLUSH 10 ML FLUSH IV FLUSH SCH ×2 (08:09→19:37)
[2017-06-26] MEDS: METOPROLOL TARTRATE 25 MG TAB PO SCH ×2 (09:12→19:35)
[2017-06-26] MEDS: RIVAROXABAN 20 MG TAB PO SCH (09:13)
[2017-06-26] MEDS ORDERED: METOCLOPRAMIDE HCL 10 MG/2 ML VIAL IV PUSH PRN (09:15)
[2017-06-26] MEDS ORDERED: FUROSEMIDE 20 MG/2 ML VIAL IV PUSH ONE (09:30)
--- NOTE | 2017-06-26 11:02 | HHI.PR ---
Subjective Subjective Notes No GI complaints Tolerating clears but going a little slow Objective Vitals/I&O Vital Signs Date Time Temp Pulse Resp B/P (MAP) Pulse Ox O2 Delivery O2 Flow Rate FiO2 06/26/17 08:00 96.4 75 19 106/62 (77) 95 06/25/17 11:40 Nasal Cannula 2 Labs Laboratory Tests Test 06/26/17 05:00 White Blood Count 11.8 Red Blood Count 4.33 Hemoglobin 12.6 Hematocrit 39.0 Mean Corpuscular Volume 90.3 Mean Corpuscular Hemoglobin 29.2 Mean Corpuscular Hemoglobin Concent 32.4 Red Cell Distribution Width 14.2 Platelet Count 291 Mean Platelet Volume 9.0 Neutrophils (%) (Auto) 86.5 Lymphocytes (%) (Auto) 8.0 Monocytes (%) (Auto) 5.4 Eosinophils (%) (Auto) 0.0 Basophils (%) (Auto) 0.1 Neutrophils # (Auto) 10.2 Lymphocytes # (Auto) 0.9 Monocytes # (Auto) 0.6 Eosinophils # (Auto) 0.0 Basophils # (Auto) 0.0 CBC Comment DIFF FINAL Differential Comment Blood Urea Nitrogen 7 Creatinine 0.82 Random Glucose 131 Calcium Level 8.8 Magnesium Level 1.7 Sodium Level 138 Potassium Level 4.9 Chloride Level 105 Carbon Dioxide Level 25.3 Anion Gap 8 Estimat Glomerular Filtration Rate 88 Cardiovascular: Irregular Lungs: Clear Abdomen: Post-op tenderness Extremities: Perfused Wound Wound : Wound Location: Abdomen Appearance: Clean & Dry A/P Assessment and Plan 56yo F POD#1 laparoscopic VSG -Abdominal binder with ambulation -Continue to increase fluids as tolerated -D/C [employer]MENT[employer], transition to oral pain control -Continue with frequent ambulation Discharge Planning D/C home possibly today Pat Nicole Jun 26, 2017 11:02
[2017-06-26] MEDS: ACETAMINOPHEN 325MG/HYDROcodone 7.5MG/15ML UDC PO PRN ×2 (14:26→20:49)
[2017-06-27] VITALS: BP 124/82; PULSE 78; RESP 20; TEMP 96.3; O2SAT 97
[2017-06-27] MEDS: D5-1/2 NS + KCL 20 MEQ INJ 1,000 ML IV SCH ×2 (00:38→08:58)
[2017-06-27 08:00] VITALS: BP 131/78; PULSE 86; RESP 19; TEMP 97.9; O2SAT 95
[2017-06-27] MEDS: PANTOPRAZOLE SOD 40 MG DELAYED RELEASE TAB PO SCH (08:56)
[2017-06-27] MEDS: METOPROLOL TARTRATE 25 MG TAB PO SCH (08:56)
[2017-06-27] MEDS: RIVAROXABAN 20 MG TAB PO SCH (08:56)
[2017-06-27] MEDS: SODIUM CHLORIDE 0.9% FLUSH 10 ML FLUSH IV FLUSH SCH (08:58)
== END 2017-06-27 09:46 | disposition home or self-care (01) | DRG 620 ==
LOC: HSDI 05:44 → N07B 11:52
PROVIDERS: ADMIT Surgery; ATTEND Surgery
PROC: 0DB64Z3 Excision of Stomach, Percutaneous Endoscopic Approach, Vertical (ICD-10-PCS; principal; 2017-06-25 07:48)
DX: E66.01 Morbid (severe) obesity due to excess calories (principal); I42.1 Obstructive hypertrophic cardiomyopathy; I11.0 Hypertensive heart disease with heart failure; I50.9 Heart failure, unspecified; K76.0 Fatty (change of) liver, not elsewhere classified; Z68.37 Body mass index [BMI] 37.0-37.9, adult; I48.91 Unspecified atrial fibrillation; E78.00 Pure hypercholesterolemia, unspecified; K21.9 Gastro-esophageal reflux disease without esophagitis; E04.2 Nontoxic multinodular goiter; G47.30 Sleep apnea, unspecified; E55.9 Vitamin D deficiency, unspecified; I25.2 Old myocardial infarction; D86.9 Sarcoidosis, unspecified; Z79.01 Long term (current) use of anticoagulants; Z95.810 Presence of automatic (implantable) cardiac defibrillator
CPT/HCPCS: 80048; 83735; 85025; 94150; J0131; J0690; J1100; J1170; J1650; J1940; J2250; J2270; J2370; J2405; J2710; J2765; J3010; J3480; J7120; J8501

== ENCOUNTER 2017-07-09 15:41 | Observation (INO) | payer OTHER ==
[~2017-07-09] VITALS: Ht 160 cm; Wt 85.5 kg
[~2017-07-09 15:41] MED LIST changes: -FURO20TA PO; -HYDR-3533 PO; -K-TA10TA PO; -METH2.5T PO; -PRED10 PO
[2017-07-09 16:08] VITALS: BP 151/74; PULSE 72; RESP 18; TEMP 97.5; O2SAT 99
[2017-07-09 17:48] LABS: AUTOMATED NEUTROPHIL # 8.3 TH/MM3 (1.8-7.7); BASOPHIL # 0.1 TH/MM3 (0-0.2); BASOPHIL % 1.1 % (0.0-2.0); EOSINOPHIL # 0.1 TH/MM3 (0-0.4); EOSINOPHIL % 0.5 % (0.0-4.0); HEMATOCRIT 48.6 % (35.0-46.0); HEMOGLOBIN 15.8 GM/DL (11.6-15.3); LYMPHOCYTE # 2.5 TH/MM3 (1.0-4.8); MEAN CELL VOLUME 88.4 FL (80.0-100.0); MEAN CORPUSCULAR HEMOGLOBIN 28.8 PG (27.0-34.0); MEAN CORPUSCULAR HGB CONC 32.6 % (32.0-36.0); MEAN PLATELET VOLUME 9.2 FL (7.0-11.0); MONO % 9.2 % (0.0-8.0); MONOCYTE # 1.1 TH/MM3 (0-0.9); NEUT % 68.2 % (16.0-70.0); PLATELET COUNT 444 TH/MM3 (150-450); RED CELL DISTRIBUTION WIDTH 14.1 % (11.6-17.2); WHITE BLOOD COUNT 12.2 TH/MM3 (4.0-11.0)
[2017-07-09 17:52] LABS: INTERNATIONAL NORMALIZED RATIO 1.2 RATIO
[2017-07-09 18:16] LABS: BACTERIA, URINE MANY /hpf; BILIRUBIN, URINE NEG (NEG); BLOOD, URINE NEG (NEG); GLUCOSE,URINE NEG (NEG); HYALINE CAST, URINE 7 /lpf (RARE); KETONE, URINE NEG (NEG); NITRITE,URINE NEG (NEG); SQUAMOUS EPITHELIAL CELL URINE 13 /hpf (0-5); URINE COLOR YELLOW (YELLW/STRAW); URINE LEUKOCYTE ESTERASE MOD (NEG); WHITE BLOOD CELL CLUMPS RARE
[2017-07-09 18:18] LABS: ALBUMIN 4.8 GM/DL (3.4-5.0); ALT (GPT) 80 U/L (10-53); AST (GOT) 54 U/L (15-37); BICARBONATE 28.9 MEQ/L (21.0-32.0); BLOOD UREA NITROGEN 50 MG/DL (7-18); CALCIUM 10.8 MG/DL (8.5-10.1); CHLORIDE 98 MEQ/L (98-107); CREATININE 2.13 MG/DL (0.50-1.00); GLOMERULAR FILTRATION RATE 29 ML/MIN (>89); GLUCOSE,RANDOM 96 MG/DL (74-106); SODIUM (NA) 140 MEQ/L (136-145)
[2017-07-09 18:20] LABS: ALKALINE PHOSPHATASE 162 U/L (45-117); TOTAL BILIRUBIN ADULT 0.6 MG/DL (0.2-1.0); TOTAL PROTEIN 10.2 GM/DL (6.4-8.2)
[2017-07-09] MEDS ORDERED: SODIUM CHLOR 0.9% 1000 ML INJ 1,000 ML IV ONE (18:45)
[2017-07-09] MEDS ORDERED: LOSA25TA PO (18:45)
--- NOTE | 2017-07-09 19:03 | PD ---
HPI Chief Complaint: Abnormal Results Time Seen by Provider: 18:34 Travel History International Travel<30 days: No Contact w/Intl Traveler<30days: No Traveled to known affect area: No History of Present Illness HPI 56-year-old female presents to the emergency department for abnormal labs. 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 She was told she needed to go to the hospital for rehydration as her creatinine was elevated and she was dehydrated. The patient had laparoscopic vertical sleeve gastrectomy on June 25, [address] Arie worthy. She has history of congestive heart failure, cardiomyopathy, hypertension, AICD. She also states that she is having chest pain that started after she was told that she did go the hospital. She states it is aching, 3/10 in the mid chest without exacerbating or alleviating factors. Moderate severity. She denies any abdominal pain. She states she is nauseated, no vomiting PFSH Past Medical History Hx Anticoagulant Therapy: Yes (XERALTO) Anemia: Yes Asthma: No Blood Disorders: No Anxiety: No Depression: No Heart Rhythm Problems: Yes (afib) Cancer: No Cardiac Catheterization: Yes (CARDIOVERTED 3 TIMES, AFIB ABLATION) Cardiomyopathy: Yes (HYPERTROPHIC) Cardiovascular Problems: Yes (CO 2013, cardiomyopathy, AICD) High Cholesterol: Yes Chest Pain: No Congestive Heart Failure: Yes COPD: No Diabetes: No Diminished Hearing: No Endocrine: No Genitourinary: No Hiatal Hernia: No Hypertension: Yes Immune Disorder: No Musculoskeletal: No Neurologic: No Psychiatric: No Reproductive: No Respiratory: Yes (SLEEP APNEA) Immunizations Current: Yes Myocardial Infarction: Yes (2013) Sleep Apnea: Yes (cpap) Thyroid Disease: No ?: Not Menopausal: Yes : 3 Para: 3 Past Surgical History Abdominal Surgery: No AICD: Yes (MEDTRONIC) Arteriovenous Shunt: No Body Medical Devices: AICD, PERMANENT RETAINER IN MOUTH Cardiac Surgery: Yes (embolization, aicd, hyertrophy cardiomyomathy, heart biopsy, ablasion, cath) Ear Surgery: No 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) Eye Surgery: No Hysterectomy: Yes Insulin Pump: No Joint Replacement: No Oral Surgery: No Pacemaker: No Thoracic Surgery: No Other Surgery: Yes (bariatric) Social History Alcohol Use: No Tobacco Use: No Substance Use: No Allergies-Medications (Allergen,Severity, Reaction): Coded Allergies: lactose (Unverified Allergy, Severe, Rash, 07/09/17) oxycodone (Unverified Allergy, Severe, Nausea/Vomiting, 07/09/17) Reported Meds & Prescriptions Reported Meds & Active Scripts Active Xarelto (Rivaroxaban) 20 Mg Tab 20 Mg PO DAILY resume xaralto on friday Reported Losartan (Losartan Potassium) 25 Mg Tab 25 Mg PO DAILY Metoprolol Tartrate 25 Mg Tab 25 Mg PO BID Maxzide (Triamterene/HCTZ) 75-50 Mg Tab 1 Tab PO DAILY Review of Systems Except as stated in HPI: all other systems reviewed are Neg Physical Exam Narrative GENERAL: Well-nourished, well-developed female patient, afebrile. SKIN: Focused skin assessment warm/dry. HEAD: Normocephalic. Atraumatic. EYES: No scleral icterus. No injection or drainage. NECK: Supple, trachea midline. No JVD or lymphadenopathy. CARDIOVASCULAR: Regular rate and rhythm without murmurs, gallops, or rubs. RESPIRATORY: Breath sounds equal bilaterally. No accessory muscle use. GASTROINTESTINAL: Abdomen soft, non-tender, nondistended. Lung sounds are clear to auscultation. MUSCULOSKELETAL: No cyanosis, or edema. Abdominal incisions appear well without erythema or drainage. BACK: Nontender without obvious deformity. No CVA tenderness. Data Data Last Documented VS Vital Signs Date Time Temp Pulse Resp B/P (MAP) Pulse Ox O2 Delivery O2 Flow Rate FiO2 07/09/17 19:58 70 15 104/69 (81) 100 Room Air 07/09/17 16:08 97.5 Orders Orders Complete Blood Count With Diff (07/09/17 16:10) Comprehensive Metabolic Panel (07/09/17 16:10) Lipase (07/09/17 16:10) Prothrombin Time / Inr (Pt) (07/09/17 16:10) Act Partial Throm Time (Ptt) (07/09/17 16:10) Urinalysis - C+S If Indicated (07/09/17 16:10) Urine Culture (07/09/17 12:21) Sodium Chlor 0.9% 1000 Ml Inj (Ns 1000 M (07/09/17 18:45) Electrocardiogram (07/09/17 ) Creatine Kinase (Cpk) (07/09/17 18:46) Troponin I (07/09/17 18:46) Ecg Monitoring (07/09/17 18:46) Bilateral Bp Monitoring (07/09/17 18:46) Iv Access Insert/Monitor (07/09/17 18:46) Oximetry (07/09/17 18:46) Oxygen Administration (07/09/17 18:46) Labs Laboratory Tests Test 07/09/17 12:21 07/09/17 17:21 Urine Color YELLOW Urine Turbidity HAZY Urine pH 5.0 Urine Specific [place] 1.017 Urine Protein NEG mg/dL Urine Glucose (UA) NEG mg/dL Urine Ketones NEG mg/dL Urine Occult Blood NEG Urine Nitrite NEG Urine Bilirubin NEG Urine Urobilinogen LESS THAN 2.0 MG/DL Urine Leukocyte Esterase MOD Urine RBC 4 /hpf Urine WBC 15 /hpf Urine WBC Clumps RARE Urine Squamous Epithelial Cells 13 /hpf Urine Bacteria MANY /hpf Urine Hyaline Casts 7 /lpf Microscopic Urinalysis Comment CULTURE INDICATED White Blood Count 12.2 TH/MM3 Red Blood Count 5.50 MIL/MM3 Hemoglobin 15.8 GM/DL Hematocrit 48.6 % Mean Corpuscular Volume 88.4 FL Mean Corpuscular Hemoglobin 28.8 PG Mean Corpuscular Hemoglobin Concent 32.6 % Red Cell Distribution Width 14.1 % Platelet Count 444 TH/MM3 Mean Platelet Volume 9.2 FL Neutrophils (%) (Auto) 68.2 % Lymphocytes (%) (Auto) 21.0 % Monocytes (%) (Auto) 9.2 % Eosinophils (%) (Auto) 0.5 % Basophils (%) (Auto) 1.1 % Neutrophils # (Auto) 8.3 TH/MM3 Lymphocytes # (Auto) 2.5 TH/MM3 Monocytes # (Auto) 1.1 TH/MM3 Eosinophils # (Auto) 0.1 TH/MM3 Basophils # (Auto) 0.1 TH/MM3 CBC Comment DIFF FINAL Differential Comment Prothrombin Time 12.0 SEC Prothromb Time International Ratio 1.2 RATIO Activated Partial Thromboplast Time 23.8 SEC Blood Urea Nitrogen 50 MG/DL Creatinine 2.13 MG/DL Random Glucose 96 MG/DL Total Protein 10.2 GM/DL Albumin 4.8 GM/DL Calcium Level 10.8 MG/DL Alkaline Phosphatase 162 U/L Aspartate Amino Transf (AST/SGOT) 54 U/L Alanine Aminotransferase (ALT/SGPT) 80 U/L Total Bilirubin 0.6 MG/DL Sodium Level 140 MEQ/L Potassium Level 3.4 MEQ/L Chloride Level 98 MEQ/L Carbon Dioxide Level 28.9 MEQ/L Anion Gap 13 MEQ/L Estimat Glomerular Filtration Rate 29 ML/MIN Total Creatine Kinase 119 U/L Troponin I LESS THAN 0.02 NG/ML Lipase 1277 U/L MDM Medical Decision Making Medical Screen Exam Complete: Yes Emergency Medical Condition: Yes Medical Record Reviewed: Yes Differential Diagnosis Dehydration versus electrolyte abnormality versus ACS versus chest wall pain versus anxiety versus acute kidney injury Narrative Course 56-year-old female presents to the emergency department for evaluation of abnormal labs. CBC shows leukocytosis 12.2, hemoconcentration hemoglobin 15.8, hematocrit 48.6. CMP shows BUN 50, creatinine 2.13. AST is 54, ALT 80, alkaline phosphates 162. Lipase is 1277. Coags show ion no acute abnormality. UA shows moderate leukocyte esterase, 15 WBC. EKG, CK, troponin are added to labs. EKG, CK, troponin are ordered. I contacted Dr. Sargent, patient's surgeon, who agrees with plan of admitting patient for IV hydration EKG shows sinus rhythm, heart rate 69 with PVCs. CK is 119. Troponin is less than 0.02. [facility] is paged for admission Diagnosis Primary Impression: Acute kidney injury Additional Impressions: Dehydration Chest pain Qualified Codes: R07.9 - Chest pain, unspecified Admitting Information Admitting Physician Requests: Admit Jodie Tate Jul 09, 2017 19:03
[2017-07-09 19:52] LABS: TROPONIN I LESS THAN 0.02 NG/ML (0.02-0.05)
[2017-07-09 19:56] VITALS: BP 115/60; PULSE 74; RESP 15; O2SAT 100
[2017-07-09 19:58] VITALS: BP 104/69; PULSE 70; RESP 15; O2SAT 100
--- NOTE | 2017-07-09 20:28 | PD ---
Physical Exam Date Seen by Provider: Jul 09, 2017 Narrative This patient presents to us because of acute renal failure. She is about 2 weeks status post gastric sleeve. She is having difficulty taking in enough fluids. She was seen at a hospital in [place] yesterday and noted to have an elevated creatinine. Admission was recommended but refused because she is from here. She states that she told them in [place] that she would come immediately here when she returned home. She states that she is willing to be admitted here. Data Data Last Documented VS Vital Signs Date Time Temp Pulse Resp B/P (MAP) Pulse Ox O2 Delivery O2 Flow Rate FiO2 07/09/17 19:58 70 15 104/69 (81) 100 Room Air 07/09/17 16:08 97.5 Orders Orders Complete Blood Count With Diff (07/09/17 16:10) Comprehensive Metabolic Panel (07/09/17 16:10) Lipase (07/09/17 16:10) Prothrombin Time / Inr (Pt) (07/09/17 16:10) Act Partial Throm Time (Ptt) (07/09/17 16:10) Urinalysis - C+S If Indicated (07/09/17 16:10) Urine Culture (07/09/17 12:21) Sodium Chlor 0.9% 1000 Ml Inj (Ns 1000 M (07/09/17 18:45) Electrocardiogram (07/09/17 ) Creatine Kinase (Cpk) (07/09/17 18:46) Troponin I (07/09/17 18:46) Ecg Monitoring (07/09/17 18:46) Bilateral Bp Monitoring (07/09/17 18:46) Iv Access Insert/Monitor (07/09/17 18:46) Oximetry (07/09/17 18:46) Oxygen Administration (07/09/17 18:46) Admit Order (Ed Use Only) (07/09/17 20:17) Labs Laboratory Tests Test 07/09/17 12:21 07/09/17 17:21 Urine Color YELLOW Urine Turbidity HAZY Urine pH 5.0 Urine Specific [place] 1.017 Urine Protein NEG mg/dL Urine Glucose (UA) NEG mg/dL Urine Ketones NEG mg/dL Urine Occult Blood NEG Urine Nitrite NEG Urine Bilirubin NEG Urine Urobilinogen LESS THAN 2.0 MG/DL Urine Leukocyte Esterase MOD Urine RBC 4 /hpf Urine WBC 15 /hpf Urine WBC Clumps RARE Urine Squamous Epithelial Cells 13 /hpf Urine Bacteria MANY /hpf Urine Hyaline Casts 7 /lpf Microscopic Urinalysis Comment CULTURE INDICATED White Blood Count 12.2 TH/MM3 Red Blood Count 5.50 MIL/MM3 Hemoglobin 15.8 GM/DL Hematocrit 48.6 % Mean Corpuscular Volume 88.4 FL Mean Corpuscular Hemoglobin 28.8 PG Mean Corpuscular Hemoglobin Concent 32.6 % Red Cell Distribution Width 14.1 % Platelet Count 444 TH/MM3 Mean Platelet Volume 9.2 FL Neutrophils (%) (Auto) 68.2 % Lymphocytes (%) (Auto) 21.0 % Monocytes (%) (Auto) 9.2 % Eosinophils (%) (Auto) 0.5 % Basophils (%) (Auto) 1.1 % Neutrophils # (Auto) 8.3 TH/MM3 Lymphocytes # (Auto) 2.5 TH/MM3 Monocytes # (Auto) 1.1 TH/MM3 Eosinophils # (Auto) 0.1 TH/MM3 Basophils # (Auto) 0.1 TH/MM3 CBC Comment DIFF FINAL Differential Comment Prothrombin Time 12.0 SEC Prothromb Time International Ratio 1.2 RATIO Activated Partial Thromboplast Time 23.8 SEC Blood Urea Nitrogen 50 MG/DL Creatinine 2.13 MG/DL Random Glucose 96 MG/DL Total Protein 10.2 GM/DL Albumin 4.8 GM/DL Calcium Level 10.8 MG/DL Alkaline Phosphatase 162 U/L Aspartate Amino Transf (AST/SGOT) 54 U/L Alanine Aminotransferase (ALT/SGPT) 80 U/L Total Bilirubin 0.6 MG/DL Sodium Level 140 MEQ/L Potassium Level 3.4 MEQ/L Chloride Level 98 MEQ/L Carbon Dioxide Level 28.9 MEQ/L Anion Gap 13 MEQ/L Estimat Glomerular Filtration Rate 29 ML/MIN Total Creatine Kinase 119 U/L Troponin I LESS THAN 0.02 NG/ML Lipase 1277 U/L MDM Supervised Visit with ADWOA: Yes Narrative Course I, Dr. Colon, have reviewed the advance practice practitioner's documentation and am in agreement, met with the patient face to face, made the diagnosis, and the medical decision making was done by me. *My assessment and Findings: The patient is awake and alert and fully oriented Vital Signs Date Time Temp Pulse Resp B/P (MAP) Pulse Ox O2 Delivery O2 Flow Rate FiO2 07/09/17 19:58 70 15 104/69 (81) 100 Room Air 07/09/17 19:56 74 15 115/60 (78) 100 Room Air 07/09/17 19:56 15 100 Room Air 07/09/17 19:55 100 Room Air 07/09/17 16:08 97.5 72 18 151/74 (99) 99 CBC & BMP Diagram 07/09/17 17:21 Total Protein 10.2 H, Albumin 4.8, Calcium Level 10.8 H, Alkaline Phosphatase 162 H, Aspartate Amino Transf (AST/SGOT) 54 H, Alanine Aminotransferase (ALT/ SGPT) 80 H, Total Bilirubin 0.6 The patient will be admitted for hydration. Please see Jodie Tate NP's note for laboratory and radiology results, final diagnosis and disposition Diagnosis Primary Impression: Acute kidney injury Additional Impressions: Chest pain Qualified Codes: R07.9 - Chest pain, unspecified Dehydration Vee Colon MD Jul 09, 2017 20:28
--- NOTE | 2017-07-09 21:40 | EKG ---
Date Performed: 07/09/2017 Time Performed: 19:56:57 PTAGE: 56 years EKG: Sinus rhythm WITH OCCASIONAL VENTRICULAR PREMATURE COMPLEXES MARKED LEFT AXIS DEVIATION INTRAVENTRICULAR CONDUCTI ON DELAY ABNORMAL ECG Compared to prior electrocardiogram, Premature ventricular contractions are now present PREVIOUS TRACING : 12/14/2015 06.18 DOCTOR: Nader Delgado Interpretating Date/Time 07/09/2017 21:39:53
[2017-07-09 22:24] VITALS: BP 123/69; PULSE 87; RESP 16; O2SAT 100
--- NOTE | 2017-07-09 22:32 | HHI.HP ---
HPI Service [facility] Primary Care Physician Brian Marinelli MD Admission Diagnosis AL, dehydration, chest pain Chief Complaint: Poor p.o. intake, dehydration, chest pain Travel History International Travel<30 Days: No Contact w/Intl Traveler <30 Da: No Traveled to Known Affected Are: No History of Present Illness 56-year-old female with relatively significant sarcoidosis and history of hypertrophic obstructive cardiomyopathy presents to the emergency department for abnormal labs. 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 She was told she needed to go to the hospital for rehydration as her creatinine was elevated and she was dehydrated. The patient had laparoscopic vertical sleeve gastrectomy on June 25, [address] Sargent. She has history of congestive heart failure, cardiomyopathy, hypertension, AICD placement. She also states that she is having chest pain that started after she was told that she did go the hospital. She states it is aching, 3/10 in the mid chest without exacerbating or alleviating factors. Moderate severity. no radiation of pain. She has some mild right-sided abdominal pain which she has had since her laparoscopic sleeve. She states she is nauseated, no vomiting. Denies diarrhea. On my exam she has no chest pain at all she says. Review of Systems Constitutional: COMPLAINS OF: Fatigue, Weight loss, Dizziness, Change in appetite Eyes: DENIES: Blurred vision, Diplopia, Eye inflammation, Eye pain, Vision loss , Photosensitivity, Double Vision Ears, nose, mouth, throat: DENIES: Tinnitus, Hearing loss, Vertigo, Nasal discharge, Oral lesions, Throat pain, Hoarseness, Ear Pain, Running Nose, Epistaxis, Sinus Pain, Toothache, Odynophagia Respiratory: DENIES: Apneas, Cough, Snoring, Wheezing, Hemoptysis, Sputum production, Shortness of breath Cardiovascular: COMPLAINS OF: Chest pain, DENIES: Palpitations, Syncope, Dyspnea on Exertion, PND, Lower Extremity Edema, Orthopnea, Claudication Gastrointestinal: COMPLAINS OF: Abdominal pain, Nausea, DENIES: Black stools, Bloody stools, BRB per rectum, Constipation, Diarrhea, GERD, Reflux, Vomiting, Difficulty Swallowing, Anorexia, See HPI Musculoskeletal: DENIES: Joint pain, Muscle aches, Stiffness, Joint Swelling, Back pain, Neck pain Integumentary: DENIES: Abnormal pigmentation, Pruritus, Rash, Nail changes, Breast masses, Breast skin changes, Nipple discharge Hematologic/lymphatic: DENIES: Bruising, Lymphadenopathy Immunologic/allergic: DENIES: Eczema, Urticaria Neurologic: DENIES: Abnormal gait, Headache, Localized weakness, Paresthesias, Seizures, Speech Problems, Tremor, Poor Balance Psychiatric: COMPLAINS OF: Anxiety Past Family Social History Past Medical History Asthma Paroxysmal atrial fibrillation Elevated LFTs GERD Hypertrophic obstructive cardiomyopathy Hypertension Hyperlipidemia Migraine headache Sarcoidosis Paroxysmal ventricular tachyarrhythmia Past Surgical History Laparoscopic cholecystectomy AICD implantation Partial abdominal hysterectomy, ovaries conserved Reported Medications Xarelto (Rivaroxaban) 20 Mg Tab 20 Mg PO DAILY Losartan (Losartan Potassium) 25 Mg Tab 25 Mg PO DAILY Metoprolol Tartrate 25 Mg Tab 25 Mg PO BID Maxzide (Triamterene/HCTZ) 75-50 Mg Tab 1 Tab PO DAILY Remicade infusion at [facility] Vitamin D 50 thousand units twice weekly Protonix 40 mg daily Allergies: Coded Allergies: lactose (Unverified Allergy, Severe, Rash, 07/09/17) oxycodone (Unverified Allergy, Severe, Nausea/Vomiting, 07/09/17) Family History Son with asthma Father has dementia Social History No tobacco, alcohol or illicit drugs 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 Pleasant, a/o. SKIN: Surgical scars anterior abdominal wall. cool and dry. HEAD: Atraumatic. Normocephalic. No temporal or scalp tenderness. EYES: Pupils equal round and reactive. Extraocular motions intact. No scleral icterus. No injection or drainage. ENT: Nose without bleeding, purulent drainage or septal hematoma. Throat without erythema, tonsillar hypertrophy or exudate. Uvula midline. Airway patent. NECK: Trachea midline. No JVD or lymphadenopathy. Supple, nontender, no meningeal signs. CARDIOVASCULAR: Regular rate and rhythm without murmurs, gallops, or rubs. RESPIRATORY: Clear to auscultation. Breath sounds equal bilaterally. No wheezes , rales, or rhonchi. GASTROINTESTINAL: Abdomen soft, non-tender, nondistended. No hepato-splenomegaly , or palpable masses. No guarding. Bowel sounds normal. MUSCULOSKELETAL: Extremities without clubbing, cyanosis, or edema. No joint tenderness, effusion, or edema noted. No calf tenderness. NEUROLOGICAL: Awake and alert. Cranial nerves II through XII intact. Motor and sensory grossly within normal limits. Five out of 5 muscle strength in all muscle groups. Normal speech. Laboratory Laboratory Tests Test 07/09/17 12:21 07/09/17 17:21 Urine Color YELLOW Urine Turbidity HAZY Urine pH 5.0 Urine Specific [place] 1.017 Urine Protein NEG Urine Glucose (UA) NEG Urine Ketones NEG Urine Occult Blood NEG Urine Nitrite NEG Urine Bilirubin NEG Urine Urobilinogen LESS THAN 2.0 Urine Leukocyte Esterase MOD Urine RBC 4 Urine WBC 15 Urine WBC Clumps RARE Urine Squamous Epithelial Cells 13 Urine Bacteria MANY Urine Hyaline Casts 7 Microscopic Urinalysis Comment CULTURE INDICATED White Blood Count 12.2 Red Blood Count 5.50 Hemoglobin 15.8 Hematocrit 48.6 Mean Corpuscular Volume 88.4 Mean Corpuscular Hemoglobin 28.8 Mean Corpuscular Hemoglobin Concent 32.6 Red Cell Distribution Width 14.1 Platelet Count 444 Mean Platelet Volume 9.2 Neutrophils (%) (Auto) 68.2 Lymphocytes (%) (Auto) 21.0 Monocytes (%) (Auto) 9.2 Eosinophils (%) (Auto) 0.5 Basophils (%) (Auto) 1.1 Neutrophils # (Auto) 8.3 Lymphocytes # (Auto) 2.5 Monocytes # (Auto) 1.1 Eosinophils # (Auto) 0.1 Basophils # (Auto) 0.1 CBC Comment DIFF FINAL Differential Comment Prothrombin Time 12.0 Prothromb Time International Ratio 1.2 Activated Partial Thromboplast Time 23.8 Blood Urea Nitrogen 50 Creatinine 2.13 Random Glucose 96 Total Protein 10.2 Albumin 4.8 Calcium Level 10.8 Alkaline Phosphatase 162 Aspartate Amino Transf (AST/SGOT) 54 Alanine Aminotransferase (ALT/SGPT) 80 Total Bilirubin 0.6 Sodium Level 140 Potassium Level 3.4 Chloride Level 98 Carbon Dioxide Level 28.9 Anion Gap 13 Estimat Glomerular Filtration Rate 29 Total Creatine Kinase 119 Troponin I LESS THAN 0.02 Lipase 1277 Date/Time Source Procedure Growth Status 07/09/17 12:21 Urine Clean Catch Urine Culture Pending Received Result Diagram: 07/09/17 1721 07/09/17 1721 Caprini VTE Risk Assessment Caprini VTE Risk Assessment: Mod/High Risk (score >= 2) Caprini Risk Assessment Model Point Value = 1 Point Value = 2 Point Value = 3 Point Value = 5 Age 41-60 Minor surgery BMI > 25 kg/m2 Swollen legs Varicose veins or History of unexplained or recurrent spontaneous Oral contraceptives or hormone replacement Sepsis (< 1 month) Serious lung disease, including pneumonia (< 1 month) Abnormal pulmonary function Acute myocardial infarction Congestive heart failure (< 1 month) History of inflammatory bowel disease Medical patient at bed rest Age 61-74 Arthroscopic surgery Major open surgery (> 45 min) Laparoscopic surgery (> 45 min) Malignancy Confined to bed (> 72 hours) Immobilizing plaster cast Central venous access Age >= 75 History of VTE Family history of VTE Factor V Leiden Prothrombin [id number] Lupus anticoagulant Anticardiolipin antibodies Elevated serum homocysteine Heparin-induced thrombocytopenia Other congenital or acquired thrombophilia Stroke (< 1 month) Elective arthroplasty Hip, pelvis, or leg fracture Acute spinal cord injury (< 1 month) Prophylaxis Regimen Total Risk Factor Score Risk Level Prophylaxis Regimen 0-1 Low Early ambulation 2 Moderate Order ONE of the following: *Sequential Compression Device (SCD) *Heparin 5000 units SQ BID 3-4 Higher Order ONE of the following medications: *Heparin 5000 units SQ TID *Enoxaparin/Lovenox 40 mg SQ daily (WT < 150 kg, CrCl > 30 mL/min) *Enoxaparin/Lovenox 30 mg SQ daily (WT < 150 kg, CrCl > 10-29 mL/min) *Enoxaparin/Lovenox 30 mg SQ BID (WT < 150 kg, CrCl > 30 mL/min) AND/OR *Sequential Compression Device (SCD) 5 or more Highest Order ONE of the following medications: *Heparin 5000 units SQ TID (Preferred with Epidurals) *Enoxaparin/Lovenox 40 mg SQ daily (WT < 150 kg, CrCl > 30 mL/min) *Enoxaparin/Lovenox 30 mg SQ daily (WT < 150 kg, CrCl > 10-29 mL/min) *Enoxaparin/Lovenox 30 mg SQ BID (WT < 150 kg, CrCl > 30 mL/min) AND *Sequential Compression Device (SCD) Assessment and Plan Problem List: (1) Acute kidney injury ICD Codes: N17.9 - Acute kidney failure, unspecified Status: Acute Plan: Likely due to poor p.o. intake since her surgery. We will hydrate. We will have Dr. Barton see patient given her recent surgical intervention. (2) Dehydration ICD Codes: E86.0 - Dehydration Status: Acute Plan: As above. (3) Chest pain ICD Codes: R07.9 - Chest pain, unspecified Status: Acute Plan: Somewhat atypical. She does have reduced ejection fraction and underlying risk factors. Patient with fixed basal to mid anterior septal infarct pattern without noted ischemia on Lexiscan stress test done March 27, 2017. EF around 28% on that exam. We will rule out and follow closely. (4) Hypertrophic cardiomyopathy ICD Codes: I42.2 - Other hypertrophic cardiomyopathy Status: Chronic Plan: Continue medications. No overt failure. (5) Sarcoidosis ICD Codes: D86.9 - Sarcoidosis, unspecified Status: Chronic Plan: Continue outpatient treatment. Code Status Full Discussed Condition With Patient, her family members and ER provider. Problem Qualifiers (1) Chest pain: Qualified Codes: R07.9 - Chest pain, unspecified Sony Mendoza MD PhD Jul 09, 2017 22:32
[2017-07-10] VITALS (9 sets, daily range): BP systolic 101–116; BP diastolic 56–73; PULSE 64–78; RESP 14–18; TEMP 95.5–99.1; O2SAT 97–100
[2017-07-10] MEDS: NS + KCL 20 MEQ INJ 1,000 ML IV SCH ×2 (00:23→12:05)
[2017-07-10 06:58] LABS: AUTOMATED NEUTROPHIL # 3.9 TH/MM3 (1.8-7.7); BASOPHIL # 0.2 TH/MM3 (0-0.2); BASOPHIL % 2.4 % (0.0-2.0); EOSINOPHIL # 0.1 TH/MM3 (0-0.4); EOSINOPHIL % 2.2 % (0.0-4.0); HEMATOCRIT 43.8 % (35.0-46.0); HEMOGLOBIN 14.4 GM/DL (11.6-15.3); LYMPH % 25.8 % (9.0-44.0); LYMPHOCYTE # 1.7 TH/MM3 (1.0-4.8); MEAN CORPUSCULAR HEMOGLOBIN 29.2 PG (27.0-34.0); MEAN CORPUSCULAR HGB CONC 32.9 % (32.0-36.0); MEAN PLATELET VOLUME 9.4 FL (7.0-11.0); MONO % 10.8 % (0.0-8.0); MONOCYTE # 0.7 TH/MM3 (0-0.9); NEUT % 58.8 % (16.0-70.0); PLATELET COUNT 338 TH/MM3 (150-450); RED BLOOD COUNT 4.92 MIL/MM3 (4.00-5.30); RED CELL DISTRIBUTION WIDTH 13.6 % (11.6-17.2); WHITE BLOOD COUNT 6.7 TH/MM3 (4.0-11.0)
[2017-07-10 07:31] LABS: ALBUMIN 3.7 GM/DL (3.4-5.0); ALKALINE PHOSPHATASE 127 U/L (45-117); ALT (GPT) 61 U/L (10-53); AST (GOT) 40 U/L (15-37); BICARBONATE 27.2 MEQ/L (21.0-32.0); BLOOD UREA NITROGEN 43 MG/DL (7-18); CALCIUM 9.3 MG/DL (8.5-10.1); CHLORIDE 104 MEQ/L (98-107); CREATININE 1.62 MG/DL (0.50-1.00); GLOMERULAR FILTRATION RATE 40 ML/MIN (>89); GLUCOSE,RANDOM 63 MG/DL (74-106); SODIUM (NA) 143 MEQ/L (136-145); TOTAL BILIRUBIN ADULT 0.6 MG/DL (0.2-1.0); TOTAL PROTEIN 8.1 GM/DL (6.4-8.2); TROPONIN I LESS THAN 0.02 NG/ML (0.02-0.05)
[2017-07-10] MEDS: METOPROLOL TARTRATE 25 MG TAB PO SCH ×2 (07:52→20:21)
[2017-07-10] MEDS ORDERED: RIVAROXABAN 20 MG TAB PO SCH (09:00)
[2017-07-10] MEDS: cefTRIAXone INJ 1,000 MG in SODIUM CHLORIDE 0.9% INJ 100 ML IV SCH (11:04)
[2017-07-10] MEDS ORDERED: MULTIVITAMIN INJ 10 ML, THIAMINE INJ 100 MG, FOLIC ACID INJ 1 MG in DEXT 5%-NACL 0.9% 5... IV SCH (11:30)
--- NOTE | 2017-07-10 11:44 | HHI.PR ---
Subjective Remarks No new complaints Pt is trying to drink more fluids today No abdominal pain Denies any dysuria, urinary frequency or urgency Objective Vitals Vital Signs Date Time Temp Pulse Resp B/P (MAP) Pulse Ox O2 Delivery O2 Flow Rate FiO2 07/10/17 08:00 96.2 71 18 116/72 (87) 100 07/10/17 04:32 99.1 78 15 109/56 (73) 98 07/10/17 04:00 97.9 73 17 109/64 (79) 100 07/10/17 02:07 07/10/17 00:23 74 15 111/73 (86) 97 Room Air 07/09/17 22:24 87 16 123/69 (87) 100 Room Air 07/09/17 19:58 70 15 104/69 (81) 100 Room Air 07/09/17 19:56 74 15 115/60 (78) 100 Room Air 07/09/17 19:56 15 100 Room Air 07/09/17 19:55 100 Room Air 07/09/17 16:08 97.5 72 18 151/74 (99) 99 Result Diagram: 07/10/17 0459 07/10/17 0459 Other Results Laboratory Tests Test 07/09/17 12:21 07/09/17 17:21 07/09/17 23:10 07/10/17 04:59 Urine Color YELLOW Urine Turbidity HAZY Urine pH 5.0 Urine Specific [place] 1.017 Urine Protein NEG mg/dL Urine Glucose (UA) NEG mg/dL Urine Ketones NEG mg/dL Urine Occult Blood NEG Urine Nitrite NEG Urine Bilirubin NEG Urine Urobilinogen LESS THAN 2.0 MG/DL Urine Leukocyte Esterase MOD Urine RBC 4 /hpf Urine WBC 15 /hpf Urine WBC Clumps RARE Urine Squamous Epithelial Cells 13 /hpf Urine Bacteria MANY /hpf Urine Hyaline Casts 7 /lpf Microscopic Urinalysis Comment CULTURE INDICATED White Blood Count 12.2 TH/MM3 6.7 TH/MM3 Red Blood Count 5.50 MIL/MM3 4.92 MIL/MM3 Hemoglobin 15.8 GM/DL 14.4 GM/DL Hematocrit 48.6 % 43.8 % Mean Corpuscular Volume 88.4 FL 89.0 FL Mean Corpuscular Hemoglobin 28.8 PG 29.2 PG Mean Corpuscular Hemoglobin Concent 32.6 % 32.9 % Red Cell Distribution Width 14.1 % 13.6 % Platelet Count 444 TH/MM3 338 TH/MM3 Mean Platelet Volume 9.2 FL 9.4 FL Neutrophils (%) (Auto) 68.2 % 58.8 % Lymphocytes (%) (Auto) 21.0 % 25.8 % Monocytes (%) (Auto) 9.2 % 10.8 % Eosinophils (%) (Auto) 0.5 % 2.2 % Basophils (%) (Auto) 1.1 % 2.4 % Neutrophils # (Auto) 8.3 TH/MM3 3.9 TH/MM3 Lymphocytes # (Auto) 2.5 TH/MM3 1.7 TH/MM3 Monocytes # (Auto) 1.1 TH/MM3 0.7 TH/MM3 Eosinophils # (Auto) 0.1 TH/MM3 0.1 TH/MM3 Basophils # (Auto) 0.1 TH/MM3 0.2 TH/MM3 CBC Comment DIFF FINAL DIFF FINAL Differential Comment Prothrombin Time 12.0 SEC Prothromb Time International Ratio 1.2 RATIO Activated Partial Thromboplast Time 23.8 SEC Blood Urea Nitrogen 50 MG/DL 43 MG/DL Creatinine 2.13 MG/DL 1.62 MG/DL Random Glucose 96 MG/DL 63 MG/DL Total Protein 10.2 GM/DL 8.1 GM/DL Albumin 4.8 GM/DL 3.7 GM/DL Calcium Level 10.8 MG/DL 9.3 MG/DL Alkaline Phosphatase 162 U/L 127 U/L Aspartate Amino Transf (AST/SGOT) 54 U/L 40 U/L Alanine Aminotransferase (ALT/SGPT) 80 U/L 61 U/L Total Bilirubin 0.6 MG/DL 0.6 MG/DL Sodium Level 140 MEQ/L 143 MEQ/L Potassium Level 3.4 MEQ/L 3.2 MEQ/L Chloride Level 98 MEQ/L 104 MEQ/L Carbon Dioxide Level 28.9 MEQ/L 27.2 MEQ/L Anion Gap 13 MEQ/L 12 MEQ/L Estimat Glomerular Filtration Rate 29 ML/MIN 40 ML/MIN Total Creatine Kinase 119 U/L Troponin I LESS THAN 0.02 NG/ML LESS THAN 0.02 NG/ML LESS THAN 0.02 NG/ML Lipase 1277 U/L 972 U/L Objective Remarks General: NAD, AAOx3 Chest: CTA Cardiac: Regular Abd: +BS, soft ND/NT Ext: No edema A/P Problem List: (1) Acute kidney injury ICD Codes: N17.9 - Acute kidney failure, unspecified Status: Acute Plan: - Pt is a 56 y/o female with sarcoidosis, history of hypertrophic obstructive cardiomyopathy s/p AICD placement, HTN, and had recently undergone laparoscopic vertical sleeve gastrectomy on June 25, [address] Sargent - She presented to the ED on 07/09 for evaluation of abnormal labs/AL. - Pts labs at admission noted Cr 2.13 - Likely due to poor p.o. intake since her surgery. - Pt was started on some gentle IVF - Labs are improving with Cr 1.62 this morning. - Pt noted to have an elevated lipase level, etiology unclear. Pt not having any specific abd pain, N/V. Repeat labs in AM - Dr. Barton is consulted to see patient given her recent surgical intervention. (2) Dehydration ICD Codes: E86.0 - Dehydration Status: Acute Plan: - As above. (3) Chest pain ICD Codes: R07.9 - Chest pain, unspecified Status: Acute Plan: - Pt had complained of some mild chest discomfort after being told to report to the ED due to abnormal labs, this pain is somewhat atypical. - She does have reduced ejection fraction and underlying risk factors. - Patient with fixed basal to mid anterior septal infarct pattern without noted ischemia on Lexiscan stress test done March 27, 2017. EF around 28% on that exam. - Serial CE were negative - CP resolved, monitor clinical status (4) Hypertrophic cardiomyopathy ICD Codes: I42.2 - Other hypertrophic cardiomyopathy Status: Chronic Plan: - Continue medications. - No overt failure. (5) Sarcoidosis ICD Codes: D86.9 - Sarcoidosis, unspecified Status: Chronic Plan: - Continue outpatient treatment. (6) Atrial fibrillation ICD Codes: I48.91 - Unspecified atrial fibrillation Status: Acute Plan: - BB is continued - Xarelto held by pharmacy due to AL Assessment and Plan Patient examined. Assessment and plan formulated with Gloria Landaverde PA-C. I agree with the above. cm. s/p gastic sleeve. presented with dehydration/al. improving with gentle ns with kcl. monitor for chf. gen surg consulted. Problem Qualifiers (1) Chest pain: Qualified Codes: R07.9 - Chest pain, unspecified (2) Atrial fibrillation: Qualified Codes: I48.0 - Paroxysmal atrial fibrillation Gloria Landaverde Jul 10, 2017 11:44 Juarez Frederick MD Jul 10, 2017 12:44
--- NOTE | 2017-07-10 14:15 | EKG ---
Date Performed: 07/09/2017 Time Performed: 23:08:44 PTAGE: 56 years EKG: Sinus rhythm WITH OCCASIONAL SUPRAVENTRICULAR PREMATURE COMPLEXES Right bundle branch block with left anterior fa scicular block ABNORMAL ECG No significant change from prior electrocardiogram. PREVIOUS TRACING : 07/09/2017 19.56 DOCTOR: Nader Delgado Interpretating Date/Time 07/10/2017 14:14:52
--- NOTE | 2017-07-10 14:19 | PD.CONS ---
HPI Consult Requested By Dr. Mendoza Reason for Consult Poor oral intake, s/p bariatric surgery x 2 weeks ago Primary Care Physician Brian Marinelli MD History of Present Illness Ms. Cardoza is a 56yo female who underwent laparoscopic vertical sleeve gastrectomy on 06/25/17. She was been progressing normal until last week. She started to have a hard time getting in enough fluids with her pureed diet. She was at an appointment with her Airport Location Manager when he informed her she was in acute renal failure and needed to be seen in the emergency room. Review of Systems Constitutional: DENIES: Diaphoretic episodes, Fatigue, Fever, Weight gain, Weight loss, Chills, Dizziness, Change in appetite, Night Sweats Endocrine: DENIES: Abnorml menstrual pattern, Heat/cold intolerance, Polydipsia , Polyuria, Polyphagia Eyes: DENIES: Blurred vision, Diplopia, Eye inflammation, Eye pain, Vision loss , Photosensitivity, Double Vision Ears, nose, mouth, throat: DENIES: Tinnitus, Hearing loss, Vertigo, Nasal discharge, Oral lesions, Throat pain, Hoarseness, Ear Pain, Running Nose, Epistaxis, Sinus Pain, Toothache, Odynophagia Respiratory: DENIES: Apneas, Cough, Snoring, Wheezing, Hemoptysis, Sputum production, Shortness of breath Cardiovascular: DENIES: Chest pain, Palpitations, Syncope, Dyspnea on Exertion , PND, Lower Extremity Edema, Orthopnea, Claudication Gastrointestinal: DENIES: Abdominal pain, Black stools, Bloody stools, Constipation, Diarrhea, Nausea, Vomiting, Difficulty Swallowing, Anorexia Genitourinary: DENIES: Abnormal vaginal bleeding, Dysmenorrhea, Dyspareunia, Sexual dysfunction, Urinary frequency, Urinary incontinence, Urgency, Hematuria , Dysuria, Nocturia, Vaginal discharge Musculoskeletal: DENIES: Joint pain, Muscle aches, Stiffness, Joint Swelling, Back pain, Neck pain Integumentary: DENIES: Abnormal pigmentation, Pruritus, Rash, Nail changes, Breast masses, Breast skin changes, Nipple discharge Hematologic/lymphatic: DENIES: Bruising, Lymphadenopathy Immunologic/allergic: DENIES: Eczema, Urticaria Neurologic: DENIES: Abnormal gait, Headache, Localized weakness, Paresthesias, Seizures, Speech Problems, Tremor, Poor Balance Psychiatric: DENIES: Anxiety, Confusion, Mood changes, Depression, Hallucinations, Agitation, Suicidal Ideation, Homicidal Ideation, Delusions Past Family Social History Past Medical History Asthma Paroxysmal atrial fibrillation Elevated LFTs GERD Hypertrophic obstructive cardiomyopathy Hypertension Hyperlipidemia Migraine headache Sarcoidosis Paroxysmal ventricular tachyarrhythmia Past Surgical History Laparoscopic cholecystectomy AICD implantation Partial abdominal hysterectomy Vertical sleeve gastrectomy Allergies: Coded Allergies: lactose (Unverified Allergy, Severe, Rash, 07/09/17) oxycodone (Unverified Allergy, Severe, Nausea/Vomiting, 07/09/17) Active Ordered Medications Current Medications Medications (Trade) Dose Ordered Sig/Toro Route Start Time Stop Time Status Last Admin Potassium Chloride/Sodium Chloride 1,000 ml @ 75 mls/hr [id number] IV 07/09/17 22:45 07/10/17 18:44 07/10/17 00:23 (Lopressor) 25 mg BID PO 07/10/17 09:00 07/10/17 07:52 (Xarelto) 20 mg DAILY PO 07/10/17 09:00 UNV Ceftriaxone Sodium 1000 mg/ Sodium Chloride 100 ml @ 200 mls/hr Q24H IV 07/10/17 11:00 07/10/17 11:04 Multivitamins 10 ml/Thiamine HCl 100 mg/Folic Acid 1 mg/Dextrose/ Sodium Chloride 511.2 ml @ 125 mls/hr Q24H IV 07/10/17 11:30 07/10/17 13:25 Physical Exam Vital Signs Vital Signs Date Time Temp Pulse Resp B/P (MAP) Pulse Ox O2 Delivery O2 Flow Rate FiO2 07/10/17 12:00 96.5 65 18 104/69 (81) 100 07/10/17 08:00 96.2 71 18 116/72 (87) 100 07/10/17 04:32 99.1 78 15 109/56 (73) 98 07/10/17 04:00 97.9 73 17 109/64 (79) 100 07/10/17 02:07 07/10/17 00:23 74 15 111/73 (86) 97 Room Air 07/09/17 22:24 87 16 123/69 (87) 100 Room Air 07/09/17 19:58 70 15 104/69 (81) 100 Room Air 07/09/17 19:56 74 15 115/60 (78) 100 Room Air 07/09/17 19:56 15 100 Room Air 07/09/17 19:55 100 Room Air 07/09/17 16:08 97.5 72 18 151/74 (99) 99 Physical Exam GENERAL: No acute distress SKIN: Warm and dry. CARDIOVASCULAR: irregular RESPIRATORY: Breath sounds equal bilaterally. No accessory muscle use. GASTROINTESTINAL: Abdomen soft, mild tenderness to RLQ, nondistended. MUSCULOSKELETAL: No cyanosis, or edema. Laboratory Laboratory Tests Test 07/09/17 17:21 07/09/17 23:10 07/10/17 04:59 White Blood Count 12.2 6.7 Red Blood Count 5.50 4.92 Hemoglobin 15.8 14.4 Hematocrit 48.6 43.8 Mean Corpuscular Volume 88.4 89.0 Mean Corpuscular Hemoglobin 28.8 29.2 Mean Corpuscular Hemoglobin Concent 32.6 32.9 Red Cell Distribution Width 14.1 13.6 Platelet Count 444 338 Mean Platelet Volume 9.2 9.4 Neutrophils (%) (Auto) 68.2 58.8 Lymphocytes (%) (Auto) 21.0 25.8 Monocytes (%) (Auto) 9.2 10.8 Eosinophils (%) (Auto) 0.5 2.2 Basophils (%) (Auto) 1.1 2.4 Neutrophils # (Auto) 8.3 3.9 Lymphocytes # (Auto) 2.5 1.7 Monocytes # (Auto) 1.1 0.7 Eosinophils # (Auto) 0.1 0.1 Basophils # (Auto) 0.1 0.2 CBC Comment DIFF FINAL DIFF FINAL Differential Comment Prothrombin Time 12.0 Prothromb Time International Ratio 1.2 Activated Partial Thromboplast Time 23.8 Blood Urea Nitrogen 50 43 Creatinine 2.13 1.62 Random Glucose 96 63 Total Protein 10.2 8.1 Albumin 4.8 3.7 Calcium Level 10.8 9.3 Alkaline Phosphatase 162 127 Aspartate Amino Transf (AST/SGOT) 54 40 Alanine Aminotransferase (ALT/SGPT) 80 61 Total Bilirubin 0.6 0.6 Sodium Level 140 143 Potassium Level 3.4 3.2 Chloride Level 98 104 Carbon Dioxide Level 28.9 27.2 Anion Gap 13 12 Estimat Glomerular Filtration Rate 29 40 Total Creatine Kinase 119 Troponin I LESS THAN 0.02 LESS THAN 0.02 LESS THAN 0.02 Lipase 1277 972 Date/Time Source Procedure Growth Status 07/09/17 12:21 Urine Clean Catch Urine Culture - Preliminary IMMATURE GROWTH - REINCUBATE Resulted Result Diagram: 07/10/17 0459 07/10/179 Assessment and Plan Assessment and Plan 56yo F with Acute Kidney Injury and dehydration -Continue with clear liquids, do not advance for now. -Ambulate halls at least QID -Recheck lipase in the AM Code Status Full Discussed Condition With Patient at bedside Attending Statement This patient was examined by myself and Dr. Sargent and this note was written on his behalf Pat Nicole Jul 10, 2017 14:19
[2017-07-11] VITALS (7 sets, daily range): BP systolic 100–131; BP diastolic 56–72; PULSE 60–139; RESP 16–18; TEMP 96.2–97.3; O2SAT 98–100
[2017-07-11 06:20] LABS: AUTOMATED NEUTROPHIL # 2.2 TH/MM3 (1.8-7.7); BASOPHIL # 0.1 TH/MM3 (0-0.2); BASOPHIL % 2.5 % (0.0-2.0); EOSINOPHIL # 0.3 TH/MM3 (0-0.4); EOSINOPHIL % 5.8 % (0.0-4.0); HEMATOCRIT 40.9 % (35.0-46.0); HEMOGLOBIN 13.3 GM/DL (11.6-15.3); LYMPH % 36.3 % (9.0-44.0); LYMPHOCYTE # 1.8 TH/MM3 (1.0-4.8); MEAN CELL VOLUME 89.7 FL (80.0-100.0); MEAN CORPUSCULAR HEMOGLOBIN 29.2 PG (27.0-34.0); MEAN CORPUSCULAR HGB CONC 32.6 % (32.0-36.0); MEAN PLATELET VOLUME 8.9 FL (7.0-11.0); MONO % 11.9 % (0.0-8.0); MONOCYTE # 0.6 TH/MM3 (0-0.9); NEUT % 43.5 % (16.0-70.0); PLATELET COUNT 301 TH/MM3 (150-450); RED BLOOD COUNT 4.56 MIL/MM3 (4.00-5.30); RED CELL DISTRIBUTION WIDTH 13.8 % (11.6-17.2); WHITE BLOOD COUNT 5.1 TH/MM3 (4.0-11.0)
[2017-07-11 06:45] LABS: CALCIUM 8.9 MG/DL (8.5-10.1); CREATININE 1.29 MG/DL (0.50-1.00); MAGNESIUM 1.6 MG/DL (1.5-2.5)
[2017-07-11] MEDS: METOPROLOL TARTRATE 25 MG TAB PO SCH ×2 (09:28→21:21)
--- NOTE | 2017-07-11 10:11 | HHI.PR ---
Subjective Remarks Pt reports that she is tolerating warm liquids better and was able to drink more fluids last night and this morning. She reports that she has not had any increased abd pain, nausea or vomiting. Her post-surgical abdominal pain and continued to improve post-operatively Afebrile Objective Vitals Vital Signs Date Time Temp Pulse Resp B/P (MAP) Pulse Ox O2 Delivery O2 Flow Rate FiO2 07/11/17 04:00 96.4 64 16 100/56 (71) 99 07/11/17 00:00 96.2 77 16 103/59 (74) 99 07/10/17 20:50 96.2 66 14 114/71 (85) 100 07/10/17 20:15 65 07/10/17 16:10 95.5 64 16 114/72 (86) 07/10/17 16:00 96.7 72 18 101/66 (78) 100 07/10/17 12:00 96.5 65 18 104/69 (81) 100 Result Diagram: 07/11/17 0539 07/11/17 0539 Other Results Laboratory Tests Test 07/09/17 12:21 07/09/17 17:21 07/09/17 23:10 07/10/17 04:59 Urine Color YELLOW Urine Turbidity HAZY Urine pH 5.0 Urine Specific Aynor 1.017 Urine Protein NEG mg/dL Urine Glucose (UA) NEG mg/dL Urine Ketones NEG mg/dL Urine Occult Blood NEG Urine Nitrite NEG Urine Bilirubin NEG Urine Urobilinogen LESS THAN 2.0 MG/DL Urine Leukocyte Esterase MOD Urine RBC 4 /hpf Urine WBC 15 /hpf Urine WBC Clumps RARE Urine Squamous Epithelial Cells 13 /hpf Urine Bacteria MANY /hpf Urine Hyaline Casts 7 /lpf Microscopic Urinalysis Comment CULTURE INDICATED White Blood Count 12.2 TH/MM3 6.7 TH/MM3 Red Blood Count 5.50 MIL/MM3 4.92 MIL/MM3 Hemoglobin 15.8 GM/DL 14.4 GM/DL Hematocrit 48.6 % 43.8 % Mean Corpuscular Volume 88.4 FL 89.0 FL Mean Corpuscular Hemoglobin 28.8 PG 29.2 PG Mean Corpuscular Hemoglobin Concent 32.6 % 32.9 % Red Cell Distribution Width 14.1 % 13.6 % Platelet Count 444 TH/MM3 338 TH/MM3 Mean Platelet Volume 9.2 FL 9.4 FL Neutrophils (%) (Auto) 68.2 % 58.8 % Lymphocytes (%) (Auto) 21.0 % 25.8 % Monocytes (%) (Auto) 9.2 % 10.8 % Eosinophils (%) (Auto) 0.5 % 2.2 % Basophils (%) (Auto) 1.1 % 2.4 % Neutrophils # (Auto) 8.3 TH/MM3 3.9 TH/MM3 Lymphocytes # (Auto) 2.5 TH/MM3 1.7 TH/MM3 Monocytes # (Auto) 1.1 TH/MM3 0.7 TH/MM3 Eosinophils # (Auto) 0.1 TH/MM3 0.1 TH/MM3 Basophils # (Auto) 0.1 TH/MM3 0.2 TH/MM3 CBC Comment DIFF FINAL DIFF FINAL Differential Comment Prothrombin Time 12.0 SEC Prothromb Time International Ratio 1.2 RATIO Activated Partial Thromboplast Time 23.8 SEC Blood Urea Nitrogen 50 MG/DL 43 MG/DL Creatinine 2.13 MG/DL 1.62 MG/DL Random Glucose 96 MG/DL 63 MG/DL Total Protein 10.2 GM/DL 8.1 GM/DL Albumin 4.8 GM/DL 3.7 GM/DL Calcium Level 10.8 MG/DL 9.3 MG/DL Alkaline Phosphatase 162 U/L 127 U/L Aspartate Amino Transf (AST/SGOT) 54 U/L 40 U/L Alanine Aminotransferase (ALT/SGPT) 80 U/L 61 U/L Total Bilirubin 0.6 MG/DL 0.6 MG/DL Sodium Level 140 MEQ/L 143 MEQ/L Potassium Level 3.4 MEQ/L 3.2 MEQ/L Chloride Level 98 MEQ/L 104 MEQ/L Carbon Dioxide Level 28.9 MEQ/L 27.2 MEQ/L Anion Gap 13 MEQ/L 12 MEQ/L Estimat Glomerular Filtration Rate 29 ML/MIN 40 ML/MIN Total Creatine Kinase 119 U/L Troponin I LESS THAN 0.02 NG/ML LESS THAN 0.02 NG/ML LESS THAN 0.02 NG/ML Lipase 1277 U/L 972 U/L Test 07/11/17 05:39 White Blood Count 5.1 TH/MM3 Red Blood Count 4.56 MIL/MM3 Hemoglobin 13.3 GM/DL Hematocrit 40.9 % Mean Corpuscular Volume 89.7 FL Mean Corpuscular Hemoglobin 29.2 PG Mean Corpuscular Hemoglobin Concent 32.6 % Red Cell Distribution Width 13.8 % Platelet Count 301 TH/MM3 Mean Platelet Volume 8.9 FL Neutrophils (%) (Auto) 43.5 % Lymphocytes (%) (Auto) 36.3 % Monocytes (%) (Auto) 11.9 % Eosinophils (%) (Auto) 5.8 % Basophils (%) (Auto) 2.5 % Neutrophils # (Auto) 2.2 TH/MM3 Lymphocytes # (Auto) 1.8 TH/MM3 Monocytes # (Auto) 0.6 TH/MM3 Eosinophils # (Auto) 0.3 TH/MM3 Basophils # (Auto) 0.1 TH/MM3 CBC Comment DIFF FINAL Differential Comment Blood Urea Nitrogen 31 MG/DL Creatinine 1.29 MG/DL Random Glucose 76 MG/DL Calcium Level 8.9 MG/DL Magnesium Level 1.6 MG/DL Sodium Level 142 MEQ/L Potassium Level 3.2 MEQ/L Chloride Level 105 MEQ/L Carbon Dioxide Level 28.0 MEQ/L Anion Gap 9 MEQ/L Estimat Glomerular Filtration Rate 52 ML/MIN Lipase 1059 U/L Objective Remarks General: NAD, AAOx3 Chest: CTA Cardiac: Regular Abd: +BS, soft ND/NT Ext: No edema A/P Problem List: (1) Acute kidney injury ICD Codes: N17.9 - Acute kidney failure, unspecified Status: Acute Plan: - Pt is a 56 y/o female with sarcoidosis, history of hypertrophic obstructive cardiomyopathy s/p AICD placement, HTN, and had recently undergone laparoscopic vertical sleeve gastrectomy on June 25, [address] Sargent - She presented to the ED on 07/09 for evaluation of abnormal labs/AL. - Pts labs at admission noted Cr 2.13 - Likely due to poor p.o. intake since her surgery. - Pt was started on some gentle IVF and has been tolerating more po intake today - Labs are improving with Cr 1.62 (07/10) --> 1.29 (07/11). - Pts potassium is low, will discuss replacement with Dr. Cates - Pt noted to have an elevated lipase level, etiology unclear. Pt not having any specific abd pain, N/V. Repeat labs on 07/11 with lipase 1059. - Dr. Barton is following. (2) Dehydration ICD Codes: E86.0 - Dehydration Status: Acute Plan: - As above. (3) Chest pain ICD Codes: R07.9 - Chest pain, unspecified Status: Acute Plan: - Pt had complained of some mild chest discomfort after being told to report to the ED due to abnormal labs, this pain is somewhat atypical. - She does have reduced ejection fraction and underlying risk factors. - Patient with fixed basal to mid anterior septal infarct pattern without noted ischemia on Lexiscan stress test done March 27, 2017. EF around 28% on that exam. - Serial CE were negative - CP resolved, monitor clinical status (4) Hypertrophic cardiomyopathy ICD Codes: I42.2 - Other hypertrophic cardiomyopathy Status: Chronic Plan: - Continue medications. - No overt failure. (5) Sarcoidosis ICD Codes: D86.9 - Sarcoidosis, unspecified Status: Chronic Plan: - Continue outpatient treatment. (6) Atrial fibrillation ICD Codes: I48.91 - Unspecified atrial fibrillation Status: Acute Plan: - BB is continued - Resume Xarelto today with improvement in AL Assessment and Plan Patient examined. Assessment and plan formulated with Gloria Landaverde PA-C. I agree with the above. CM. aicd. 7 beat run VT hypokalemia. po kcl and gentle NS with KCL and recheck stat pt on her bb and xarelto resumed. arb was held for al stop abx. urine cx contaminant. pt has no uti sx's pharmacy called and they don't have d5 for the vitamin bag but will do it in saline if we want. nurse to check with gen surg clears and diet per gen surg lipase about the same. no abdomen pain or vomiting. al improved. Problem Qualifiers (1) Chest pain: Qualified Codes: R07.9 - Chest pain, unspecified (2) Atrial fibrillation: Qualified Codes: I48.0 - Paroxysmal atrial fibrillation Gloria Landaverde Jul 11, 2017 10:11 Juarez Frederick MD Jul 11, 2017 14:51
[2017-07-11] MEDS: cefTRIAXone INJ 1,000 MG in SODIUM CHLORIDE 0.9% INJ 100 ML IV SCH (11:34)
[2017-07-11] MEDS ORDERED: RIVAROXABAN 20 MG TAB PO ONE (12:00)
[2017-07-11] MEDS ORDERED: POTASSIUM CHLORIDE 25 MEQ EFFERVESCENT TAB PO ONE (12:45)
--- NOTE | 2017-07-11 12:53 | HHI.PR ---
Subjective Subjective Notes Feeling better. kidney function improving though slight increase in lipase Tolerating clears Objective Vitals/I&O Vital Signs Date Time Temp Pulse Resp B/P (MAP) Pulse Ox O2 Delivery O2 Flow Rate FiO2 07/11/17 11:31 97.3 60 16 104/62 (76) 100 07/10/17 00:23 Room Air Labs Laboratory Tests Test 07/11/17 05:39 White Blood Count 5.1 Red Blood Count 4.56 Hemoglobin 13.3 Hematocrit 40.9 Mean Corpuscular Volume 89.7 Mean Corpuscular Hemoglobin 29.2 Mean Corpuscular Hemoglobin Concent 32.6 Red Cell Distribution Width 13.8 Platelet Count 301 Mean Platelet Volume 8.9 Neutrophils (%) (Auto) 43.5 Lymphocytes (%) (Auto) 36.3 Monocytes (%) (Auto) 11.9 Eosinophils (%) (Auto) 5.8 Basophils (%) (Auto) 2.5 Neutrophils # (Auto) 2.2 Lymphocytes # (Auto) 1.8 Monocytes # (Auto) 0.6 Eosinophils # (Auto) 0.3 Basophils # (Auto) 0.1 CBC Comment DIFF FINAL Differential Comment Blood Urea Nitrogen 31 Creatinine 1.29 Random Glucose 76 Calcium Level 8.9 Magnesium Level 1.6 Sodium Level 142 Potassium Level 3.2 Chloride Level 105 Carbon Dioxide Level 28.0 Anion Gap 9 Estimat Glomerular Filtration Rate 52 Lipase 1059 Date/Time Source Procedure Growth Status 07/09/17 12:21 Urine Clean Catch Urine Culture - Final 50-100,000 CFU/ML MIXED LANI... Complete Cardiovascular: Regular Lungs: Clear Abdomen: Other (mild tenderness to RUQ) Extremities: Perfused A/P Assessment and Plan 56yo F AL and dehydration -Slight increase in lipase, continue on clear fluids -Recheck labs in AM Discharge Planning Depending on hospital course Pat Nicole Jul 11, 2017 12:53
[2017-07-11] MEDS ORDERED: NS + KCL 40 MEQ INJ 1,000 ML IV SCH (15:00)
[2017-07-11] MEDS ORDERED: POTASSIUM CHLORIDE INJ 40 MEQ in SODIUM CHLOR 0.9% 1000 ML INJ 1,000 ML IV SCH (16:00)
[2017-07-11 16:56] LABS: BILIRUBIN, URINE NEG (NEG); BLOOD, URINE NEG (NEG); GLUCOSE,URINE NEG (NEG); HYALINE CAST, URINE 13 /lpf (RARE); KETONE, URINE NEG (NEG); NITRITE,URINE NEG (NEG); SQUAMOUS EPITHELIAL CELL URINE <1 /hpf (0-5); URINE COLOR YELLOW (YELLW/STRAW); URINE LEUKOCYTE ESTERASE TRACE (NEG)
[2017-07-11] MEDS ORDERED: MORPHINE SULFATE 2 MG/ML INJ IV PUSH SCH (21:30)
[2017-07-11] MEDS: ACETAMINOPHEN 325 MG TAB PO PRN (21:41)
[2017-07-12] VITALS (16 sets, daily range): BP systolic 108–137; BP diastolic 58–73; PULSE 63–101; RESP 16–18; TEMP 97.2–99.1; O2SAT 94–100
[2017-07-12 07:56] LABS: AUTOMATED NEUTROPHIL # 1.8 TH/MM3 (1.8-7.7); BASOPHIL # 0.1 TH/MM3 (0-0.2); BASOPHIL % 1.9 % (0.0-2.0); EOSINOPHIL # 0.3 TH/MM3 (0-0.4); EOSINOPHIL % 6.4 % (0.0-4.0); HEMATOCRIT 38.8 % (35.0-46.0); LYMPH % 38.7 % (9.0-44.0); LYMPHOCYTE # 1.6 TH/MM3 (1.0-4.8); MEAN CELL VOLUME 89.2 FL (80.0-100.0); MEAN CORPUSCULAR HGB CONC 33.6 % (32.0-36.0); MEAN PLATELET VOLUME 9.4 FL (7.0-11.0); MONO % 11.4 % (0.0-8.0); MONOCYTE # 0.5 TH/MM3 (0-0.9); NEUT % 41.6 % (16.0-70.0); PLATELET COUNT 280 TH/MM3 (150-450); RED BLOOD COUNT 4.35 MIL/MM3 (4.00-5.30); RED CELL DISTRIBUTION WIDTH 13.6 % (11.6-17.2); WHITE BLOOD COUNT 4.3 TH/MM3 (4.0-11.0)
[2017-07-12 08:34] LABS: ALBUMIN 3.1 GM/DL (3.4-5.0); ALKALINE PHOSPHATASE 92 U/L (45-117); ALT (GPT) 55 U/L (10-53); AST (GOT) 45 U/L (15-37); BICARBONATE 28.6 MEQ/L (21.0-32.0); BLOOD UREA NITROGEN 16 MG/DL (7-18); CALCIUM 8.7 MG/DL (8.5-10.1); CHLORIDE 106 MEQ/L (98-107); CREATININE 0.99 MG/DL (0.50-1.00); GLOMERULAR FILTRATION RATE 71 ML/MIN (>89); GLUCOSE,RANDOM 97 MG/DL (74-106); SODIUM (NA) 142 MEQ/L (136-145); TOTAL BILIRUBIN ADULT 0.5 MG/DL (0.2-1.0); TOTAL PROTEIN 6.6 GM/DL (6.4-8.2)
[2017-07-12] MEDS ORDERED: POTASSIUM CHLORIDE 25 MEQ EFFERVESCENT TAB PO ONE (10:00)
[2017-07-12] MEDS: METOPROLOL TARTRATE 25 MG TAB PO SCH ×2 (10:31→20:38)
[2017-07-12] MEDS: RIVAROXABAN 20 MG TAB PO SCH (10:31)
[2017-07-12] MEDS: ACETAMINOPHEN 325 MG TAB PO PRN ×2 (10:33→20:38)
--- NOTE | 2017-07-12 11:08 | HHI.PR ---
Subjective Remarks had short run nsvt yesterday pt feels well mild right upper quad abdomen pain occasionally..but denies association with food. no dysuria Objective Vitals heart reg lung cta abd s/nt ext no edema Vital Signs Date Time Temp Pulse Resp B/P (MAP) Pulse Ox O2 Delivery O2 Flow Rate FiO2 07/12/17 08:00 97.7 67 16 117/68 (84) 100 07/12/17 07:55 80 07/12/17 04:30 98.4 65 17 108/58 (75) 94 07/12/17 04:00 68 07/12/17 00:00 97.6 77 18 137/65 (89) 100 07/12/17 00:00 68 07/11/17 20:00 97.2 69 18 131/62 (85) 99 07/11/17 20:00 69 07/11/17 16:00 97.3 68 16 129/72 (91) 99 07/11/17 14:40 139 07/11/17 11:31 97.3 60 16 104/62 (76) 100 Result Diagram: 07/12/17 0700 07/12/17 0705 A/P Problem List: (1) Acute kidney injury ICD Codes: N17.9 - Acute kidney failure, unspecified Status: Acute Plan: - Pt is a 56 y/o female with sarcoidosis, history of hypertrophic obstructive cardiomyopathy s/p AICD placement, HTN, and had recently undergone laparoscopic vertical sleeve gastrectomy on June 25, [address] Sargent - She presented to the ED on 07/09 for evaluation of abnormal labs/AL. - Pts labs at admission noted Cr 2.13 - al/dehydration improving - hypokalemia persists..cont to replace. on po and iv. will do po pills if ok with gen surg -elevated lipase of unclear significance. diet per gen surg -not felt to have uti. no sx's. first u/a and cx contaminant. abx stopped. (2) Dehydration ICD Codes: E86.0 - Dehydration Status: Acute Plan: - As above. (3) Chest pain ICD Codes: R07.9 - Chest pain, unspecified Status: Acute Plan: - Pt had complained of some mild chest discomfort after being told to report to the ED due to abnormal labs, this pain is somewhat atypical. - She does have reduced ejection fraction and underlying risk factors. - Patient with fixed basal to mid anterior septal infarct pattern without noted ischemia on Lexiscan stress test done March 27, 2017. EF around 28% on that exam. - Serial CE were negative - CP resolved, monitor clinical status (4) Hypertrophic cardiomyopathy ICD Codes: I42.2 - Other hypertrophic cardiomyopathy Status: Chronic Plan: - Continue medications. - No overt failure. (5) Sarcoidosis ICD Codes: D86.9 - Sarcoidosis, unspecified Status: Chronic Plan: - Continue outpatient treatment. (6) Atrial fibrillation ICD Codes: I48.91 - Unspecified atrial fibrillation Status: Acute Plan: - BB is continued - Xarelto Problem Qualifiers (1) Chest pain: Qualified Codes: R07.9 - Chest pain, unspecified (2) Atrial fibrillation: Qualified Codes: I48.0 - Paroxysmal atrial fibrillation Juarez Frederick MD Jul 12, 2017 11:08
[2017-07-12] MEDS: POTASSIUM CHLORIDE 10 MEQ CONTROLLED RELEASE TAB PO SCH ×4 (12:36→20:37)
[2017-07-13] VITALS (10 sets, daily range): BP systolic 106–117; BP diastolic 64–69; PULSE 60–82; RESP 16–19; TEMP 97.2–97.8; O2SAT 99–100
[2017-07-13 07:36] LABS: BICARBONATE 24.6 MEQ/L (21.0-32.0); CALCIUM 8.3 MG/DL (8.5-10.1); CREATININE 0.77 MG/DL (0.50-1.00)
[2017-07-13] MEDS: METOPROLOL TARTRATE 25 MG TAB PO SCH (10:24)
[2017-07-13] MEDS: POTASSIUM CHLORIDE 10 MEQ CONTROLLED RELEASE TAB PO SCH (10:24)
[2017-07-13] MEDS: RIVAROXABAN 20 MG TAB PO SCH (10:24)
--- NOTE | 2017-07-13 10:51 | HHI.DS ---
Discharge Summary Admission Date Jul 09, 2017 at 20:19 Discharge Date: Jul 13, 2017 Admitting Diagnosis AL, dehydration, chest pain (1) Acute kidney injury Diagnosis: Principal ICD Codes: N17.9 - Acute kidney failure, unspecified Status: Acute (2) Dehydration Diagnosis: Principal ICD Codes: E86.0 - Dehydration Status: Acute (3) Chest pain Diagnosis: Secondary ICD Codes: R07.9 - Chest pain, unspecified Status: Acute (4) Hypertrophic cardiomyopathy Diagnosis: Secondary ICD Codes: I42.2 - Other hypertrophic cardiomyopathy Status: Chronic (5) Sarcoidosis Diagnosis: Secondary ICD Codes: D86.9 - Sarcoidosis, unspecified Status: Chronic (6) Atrial fibrillation Diagnosis: Secondary ICD Codes: I48.91 - Unspecified atrial fibrillation Status: Chronic Consultants Dr. Mikey Cates - General Surgery Brief History 56-year-old female with relatively significant sarcoidosis and history of hypertrophic obstructive cardiomyopathy presents to the emergency department for abnormal labs. States she saw her optomechanical engineer today and labs were completed. She was told she needed to go to the hospital for rehydration as her creatinine was elevated and she was dehydrated. The patient had laparoscopic vertical sleeve gastrectomy on June 25, [address] Sargent. She has history of congestive heart failure, cardiomyopathy, hypertension, AICD placement. She also states that she is having chest pain that started after she was told that she did go the hospital. She states it is aching, 3/10 in the mid chest without exacerbating or alleviating factors. Moderate severity. no radiation of pain. She has some mild right-sided abdominal pain which she has had since her laparoscopic sleeve. She states she is nauseated, no vomiting. Denies diarrhea. On my exam she has no chest pain at all she says. CBC/BMP: 07/12/17 0700 07/13/17 0547 Significant Findings Laboratory Tests Test 07/11/17 05:39 07/11/17 16:30 07/11/17 21:29 07/12/17 07:00 Monocytes (%) (Auto) 11.9 % (0.0-8.0) 11.4 % (0.0-8.0) Eosinophils (%) (Auto) 5.8 % (0.0-4.0) 6.4 % (0.0-4.0) Basophils (%) (Auto) 2.5 % (0.0-2.0) Blood Urea Nitrogen 31 MG/DL (7-18) Creatinine 1.29 MG/DL (0.50-1.00) Potassium Level 3.2 MEQ/L (3.5-5.1) 3.0 MEQ/L (3.5-5.1) Estimat Glomerular Filtration Rate 52 ML/MIN (>89) Lipase 1059 U/L (73-393) Urine Leukocyte Esterase TRACE (NEG) Test 07/12/17 07:05 07/12/17 17:58 07/13/17 05:47 Albumin 3.1 GM/DL (3.4-5.0) Aspartate Amino Transf (AST/SGOT) 45 U/L (15-37) Alanine Aminotransferase (ALT/SGPT) 55 U/L (10-53) Potassium Level 3.1 MEQ/L (3.5-5.1) Estimat Glomerular Filtration Rate 71 ML/MIN (>89) Lipase 986 U/L (73-393) 737 U/L (73-393) Random Glucose 62 MG/DL (74-106) Calcium Level 8.3 MG/DL (8.5-10.1) Chloride Level 108 MEQ/L (98-107) PE at Discharge General: NAD, AAOx3 Chest: CTA Cardiac: Irregular Abd: +BS, soft ND/NT Ext: No edema Hospital Course Acute kidney injury secondary to dehydration Hypokalemia Elevated Lipase - Pt is a 56 y/o female with sarcoidosis, history of hypertrophic obstructive cardiomyopathy s/p AICD placement, HTN, and had recently undergone laparoscopic vertical sleeve gastrectomy on June 25, [address] Sargent. She presented to the ED on 07/09 for evaluation of abnormal labs/AL. Pts labs at admission noted Cr 2.13, felt to likely be due to poor p.o. intake since her surgery. Pt was started on some gentle IVF and has been tolerating more po intake. Labs are improving with Cr 1.62 (07/10) --> 1.29 (07/11) --> 0.99 (07/12) --> 0.77 (07/13). Pt had issues with hypokalemia which was replaced through IVF and oral potassium with improvement. Pt was noted to have an elevated lipase level, etiology unclear. Pt not having any specific abd pain, N/V. Repeat labs on 07/11 with lipase 1059 but this was trending down prior to discharge. Lipase on 07/13 was 737. Pt has been tolerating full liquid diet prior to discharge. She had an abnormal UA at admission but culture noted likely contaminant. She was not felt to have a UTI as she had no sx's. Repeat UA on 07/11 was negative. Abx had been started at admission for the abnormal UA and these were stopped on 07/11. She will need to followup with her PCP, Dr. Marinelli, 1 week following discharge. She will need to followup with Dr. Cates in 1 week. She will need repeat labs as an outpt to ensure her Lipase normalizes and that her potassium level remains stable. Chest pain, acute, resolved - Pt had complained of some mild chest discomfort after being told to report to the ED due to abnormal labs, this pain is somewhat atypical. She does have reduced ejection fraction and underlying risk factors. Patient with fixed basal to mid anterior septal infarct pattern without noted ischemia on Lexiscan stress test done March 27, 2017. EF around 28% on that exam. Serial CE were negative. CP resolved. Hypertrophic cardiomyopathy s/p AICD, chronic, compensated - Patient was continued on her BB. Her Losartan and Maxzide were held at admission due to low/normal BP. She has reportedly been off her Lasix and potassium since surgery. She has not had any overt s/s of failure during this admission. We will continue to hold the Losartan and Maxzide. These may need to be resumed at some point when/if her BP starts to rise. - Pt had a few episodes of nonsustained V. tach during admission. Possibly related to her hypokalemia. Pt has AICD in place. Sarcoidosis, chronic, stable - Continue outpatient treatment. Atrial fibrillation, chronic - BB was continued. Xarelto continued during admission as well. Pt Condition on Discharge: Stable Discharge Disposition: Discharge Home Discharge Instructions DIET: Follow Instructions for: Full Liquid Diet Activities you can perform: Regular-No Restrictions Follow up Referrals: PCP Follow-up - [address] Marinelli [facility] - 1 Week with Mikey Sargent MD Continued Medications: Metoprolol Tartrate (Metoprolol Tartrate) 25 Mg Tab 25 MG PO BID, #60 TAB 0 Refills Rivaroxaban (Xarelto) 20 Mg Tab 20 MG PO DAILY for Blood Clot Prevention, #30 TAB 0 Refills resume xaralto on friday Discontinued Medications: Losartan (Losartan) 25 Mg Tab 25 MG PO DAILY for Blood Pressure Management, #30 TAB 0 Refills Triamterene-Hydrochlorothiazide (Maxzide) 75-50 Mg Tab 1 TAB PO DAILY, #30 TAB 0 Refills Gloria Landaverde Jul 13, 2017 10:51 Juarez Frederick MD Jul 13, 2017 13:18
== END 2017-07-13 15:02 | disposition home or self-care (01) ==
LOC: NEPC 15:41 → INTOOBSV 20:19 → NEDA 20:19 → NEDH 07-10 01:20 → N06A 07-10 02:17
PROVIDERS: ADMIT Hospitalist; ATTEND Hospitalist
DX: N17.9 Acute kidney failure, unspecified (principal); E86.0 Dehydration; R07.9 Chest pain, unspecified; I42.1 Obstructive hypertrophic cardiomyopathy; I45.2 Bifascicular block; E87.6 Hypokalemia; R74.8 Abnormal levels of other serum enzymes; R79.89 Other specified abnormal findings of blood chemistry; R82.90 Unspecified abnormal findings in urine; I11.0 Hypertensive heart disease with heart failure; I50.9 Heart failure, unspecified; I47.2 Ventricular tachycardia; I48.2 Chronic atrial fibrillation; I25.2 Old myocardial infarction; R10.9 Unspecified abdominal pain; R11.0 Nausea; G89.18 Other acute postprocedural pain; E78.00 Pure hypercholesterolemia, unspecified; J45.909 Unspecified asthma, uncomplicated; G47.30 Sleep apnea, unspecified; D72.829 Elevated white blood cell count, unspecified; I49.3 Ventricular premature depolarization; I48.0 Paroxysmal atrial fibrillation; K21.9 Gastro-esophageal reflux disease without esophagitis; Z79.899 Other long term (current) drug therapy; Z79.01 Long term (current) use of anticoagulants; Z95.810 Presence of automatic (implantable) cardiac defibrillator; Z98.84 Bariatric surgery status
CPT/HCPCS: 80048; 80053; 81001; 82550; 82948; 83690; 83735; 84132; 84484; 85025; 85610; 85730; 87086; 93005; 96361; 96365; 96366; 96367; 99285; G0378; J0696; J3411; J3480; J7030; J7042